=== PATIENT | female | born 1990 | race Caucasian/White ===

== ENCOUNTER 2016-11-21 00:23 | Outpatient (CLI) | payer MEDICAID ==
[2016-11-21 00:54] LABS: AMORPHOUS SEDIMENT,URINE TRACE /HPF; APPEARANCE,URINE SLIGHTLY-CLOUDY; BILIRUBIN,URINE NEGATIVE (NEGATIVE); GLUCOSE, URINE NEGATIVE (NEGATIVE); KETONES,URINE NEGATIVE (NEGATIVE); LEUKOCYTE ESTERASE,URINE SMALL (NEGATIVE); NITRITE,URINE NEGATIVE (NEGATIVE); PROTEIN,URINE NEGATIVE (NEGATIVE); URINE SPECIFIC GRAVITY 1.001; UROBILINOGEN,URINE NEGATIVE mg/dL (<2.0)
--- NOTE | 2016-11-21 01:38 | Non Stress Test Report ---
Non Stress Test Datetime Report Generated by CPN: 11/21/2016 01:38 DEMOGRAPHIC Test Number: 1 EGA NST: 36.2 INDICATION Indication for Study: Other Indication for Study (NST) Other: labor check MONITORING Monitor Explained: Monitor Explained; Test Explained; Patient Verbalized Understanding Time on Monitor: 11/21/2016 00:35 Time off Monitor: 11/21/2016 01:32 NST Duration: 57 NST INTERVENTIONS NST Interventions: PO Hydration Physician Notified NST: Dr Tonny BABY A: [id number] BABY A Movement : Present Contraction Frequency : none FHR Baseline : 140 Accelerations : 15X15 Decelerations : None Variability : Moderate 6-25bpm NST Review: Meets Criteria for Reactive NST NST Review and Verified By : Carmenza Hunter RN NST Results: Reactive NST REPORT Report Trigger: Send Report
[2016-11-21 03:34] LABS: URINE BARBITURATES SCREEN NEGATIVE; URINE METHADONE SCREEN NEGATIVE; URINE PHENCYCLIDINE SCREEN NEGATIVE
--- NOTE | 2016-11-21 04:47 | L&D General Admission ---
General Admit Datetime Report Generated by CPN: 11/21/2016 04:45 INFORMATION Para: 0 (11/21/2016 01:33:Deisy Arriola) Baby, Number in Womb: 1 (11/21/2016 01:33:Deisy Arriola) CARE Height (in): 64 (11/21/2016 00:35:QS system process)
--- NOTE | 2016-11-21 04:47 | L&D Discharge Summary ---
OB Discharge Summary Datetime Report Generated by CPN: 11/21/2016 04:45 DISCHARGE DIAGNOSIS Diagnosis/Symptoms: Vaginal Bleeding Diagnoses/Symptoms Other: positive movement Gestation: 36.1 Number of Babies in Womb: 1 Parity: 0 DIET/ACTIVITY/RESTRICTIONS Diet: Regular Diet Restrictions: Continue diet pt is currently on. Activity: Normal Activity Activity Restrictions: No Sexual Activity; Nothing in Vagina - [place], Tampons, [place] TEACHING/INSTRUCTIONS/REFERRALS Instructions Given To: patient Instructions Understood: Patient Verbalized Understanding; Support Person Verbalized Understanding Referrals: None Educational Materials- Other: kick counts DISCHARGE INFORMATION Discharged AMA: No Discharge Date/Time: 11/21/2016 01:34 Discharged To: Home Discharge Provider Name: Dr Lancaster Accompanied By: mom Discharge Method: Ambulatory Condition: Stable FOLLOW UP INFORMATION Follow Up With: [facility] Follow Up On: 1-2 Days Follow Up Phone Number: [facility] - Comments: Pt discharged for False Labor. Dr Hernandez on unit and assessed patient. Pt denies complaints, denies any medications for pain at discharge, agrees with plan of care, no distress noted. Understands s/s to report, when to return to hospital for evaluation, to keep scheduled appointments. GENERAL INSTR-CALL PROVIDER IF: Contractions: Contractions or cramps become more frequent than 8 in one hour or 4 in 20 minutes; Regular painful contractions every 5 minutes or less for one hour. Time your contractions from the beginning of one to the beginning of the next Pressure: Pressure in your vagina or lower abdomen that may feel like the baby is pushing down Period Like Cramps: Period-like cramps or low dull backache that may come and go Cramps/Diarrhea: Abdominal cramps that may be accompanied by diarrhea Gush of Fluid/Blood: Gush of fluid or blood from your vagina (it is normal to have spotting after vaginal exam or intercourse) Vaginal Discharge: Change in the type or amount of vaginal discharge Decreased Movement: Your baby is not moving as much as usual- 4 movements in 1 hour after drinking and resting on side Temperature: Temperature greater than 100.0(F) orally
--- NOTE | 2016-11-21 04:47 | L&D Current Admission ---
Current Admit Datetime Report Generated by CPN: 11/21/2016 04:45 ADMISSION INFORMATION Chief Complaint: Vaginal Bleeding (11/21/2016 00:41:Deisy Arriola)
--- NOTE | 2016-11-21 04:47 | L&D Flow Sheet ---
LD Flowsheet Datetime Report Generated by CPN: 11/21/2016 04:45 Datetime: 11/21/2016 01:37 Patient Care Comments: patient ambulated off the unit in stable condition (Deisy Arriola) Datetime: 11/21/2016 01:34 Teaching Comments: Discussed dicharge instructions with the patient, handout of kick counts given. The patient verbalized understanding of these instructions no further questions at this time. (Deisy Arriola) Datetime: 11/21/2016 01:29 Comments: external monitors removed for discharge (Deisy Arriola) Datetime: 11/21/2016 01:26 Communication Provider Notified (Name): Dr Lancaster notified of the patient 36.2 presented with spotting. No bleeding noted during visit. The patient denies any pain and denies any contractions. The patient can feel movement. Orders recieved to discharge the patient home. (Deisy Arriola) Datetime: 11/21/2016 01:22 Respirations: 18 (Deisy Arriola) Uterine Activity Monitor Mode: External; Palpation (Deisy Arriola) Frequency (min): irritability (Deisy Arriola) Resting Tone (Palpate): Relaxed (Deisy Arriola) Assessment A Monitor Mode: External US (Deisy Arriola) Monitor Interventions for FHR: Ultrasound Adjusted (Deisy Arriola) FHR Baseline Rate : 140 (Deisy Arriola) Variability: Moderate 6-25 bpm (Deisy Arriola) Accelerations: 15X15 (Deisy Arriola) Decelerations: None (Deisy Arriola) Patient Care Patient Position/Activity: High Fowlers (Deisy Arriola) LaborFlag: Antepartum (QS system process) Datetime: 11/21/2016 01:10 Vital Signs NBP Sys/Becky/Mean (mmHg): 119 (QS system process) : 71 (QS system process) : 88 (QS system process) Pulse: 96 (QS system process) LaborFlag: Antepartum (QS system process) Datetime: 11/21/2016 00:48 I/O Interventions: Clear Liquids Given (Deisy Arriola) Datetime: 11/21/2016 00:41 Pain Pain Scale: 0 (Deisy Arriola) Pain Presence: None/Denies (Deisy Arriola) Vaginal Exam Vaginal Bleeding: Scant (Deisy Arriola) Maternal Assessment Level of Consciousness: Fully Conscious (Deisy Arriola) DTR's/Clonus: DTRs 2+; No Clonus (Deisy Arriola) Headache: Denies (Deisy Arriola) Breath Sounds, Left: Clear and Equal (Deisy Arriola) Breath Sounds, Right: Clear and Equal (Deisy Arriola) Nausea/Vomiting: Denies (Deisy Arriola) RUQ Epigastric Pain: Denies (Deisy Arriola) Patient Care Patient Position/Activity: Left Tilt; High Fowlers (Deisy Arriola) Teaching Instructional Method: Verbal (Deisy Arriola) Plan of Care: Plan of Care Discussed (Deisy Arriola) Unit Routine: [place] to Room; Call [place]; Bed (Deisy Arriola) LaborFlag: Antepartum (QS system process) Datetime: 11/21/2016 00:40 Vital Signs NBP Sys/Becky/Mean (mmHg): 127 (QS system process) : 76 (QS system process) : 95 (QS system process) Pulse: 98 (QS system process) LaborFlag: Antepartum (QS system process) Datetime: 11/21/2016 00:30 Patient Care Comments: patient to the unit for labor check (Deisy Arriola)
--- NOTE | 2016-11-21 04:47 | Antepartum Discharge Summary ---
Antepartum DC Datetime Report Generated by CPN: 11/21/2016 04:45 TEACHING/INSTRUCTIONS/REFERRALS Instructions Given To: patient (11/21/2016 01:33:Deisy Arriola) Instructions Understood: Patient Verbalized Understanding; Support Person Verbalized Understanding (11/21/2016 01:33:Deisy Arriola) Referrals: None (11/21/2016 01:33:Deisy Arriola) Educational Materials- Other: kick counts (11/21/2016 01:33:Deisy Arriola) DISCHARGE INFORMATION Discharge Date/Time: 11/21/2016 01:34 (11/21/2016 01:33:Deisy Arroila) Discharged To: Home (11/21/2016 01:33:Deisy Arriola) Discharge Provider Name: Dr Lancaster (11/21/2016 01:33:Deisy Arriola) Accompanied By: mom (11/21/2016 01:33:Deisy Arriola) Discharge Method: Ambulatory (11/21/2016 01:33:Deisy Arriola) Condition: Stable (11/21/2016 01:33:Deisy Arriola) FOLLOW UP INFORMATION Follow Up With: [facility] (11/21/2016 01:33:Deisy Arriola) Follow Up On: 1-2 Days (11/21/2016 01:33:Deisy Arriola) Follow Up Phone Number: [facility] - (11/21/2016 01:33:Deisy Arriola)
--- NOTE | 2016-11-21 04:47 | L&D Admission Assessment ---
LD ADM ASMT Datetime Report Generated by CPN: 11/21/2016 04:45 PATIENT ASSESSMENT Assessment Type: Triage (11/21/2016 00:41:Deisy Arriola) WEIGHT Weight (lb): 143 (11/21/2016 00:35:QS system process) Weight (kg): 65.0 (11/21/2016 00:35:QS system process) BMI: 24.5 (11/21/2016 00:35:QS system process) PAIN Pain Scale: 0 (11/21/2016 00:41:Deisy Arriola) Pain Presence: None/Denies (11/21/2016 00:41:Deisy Arriola) CONTRACTIONS Frequency (min): irritability (11/21/2016 01:22:Deisy Arriola) Resting Tone Happy: Relaxed (11/21/2016 01:22:Deisy Arriola) NEURO Level of Consciousness: Fully Conscious (11/21/2016 00:41:Deisy Arriola) DTR's/Clonus: DTRs 2+; No Clonus (11/21/2016 00:41:Deisy Arriola) Headache: Denies (11/21/2016 00:41:Deisy Arriola) Dizziness: No (11/21/2016 00:41:Deisy Arriola) Blurred Vision: No (11/21/2016 00:41:Deisy Arriola) Extremity Numbness/Tingling : None (11/21/2016 00:41:Deisy Arriola) Extremity Movement: Full Range of Motion (11/21/2016 00:41:Deisy Arriola) CARDIOVASCULAR Heart Rhythm: Regular (11/21/2016 00:41:Deisy Arriola) Nailbeds: [place] (11/21/2016 00:41:Deisy Arriola) Capillary Refill: Less than 3 Seconds (11/21/2016 00:41:Deisy Arriola) Lower Extremities Edema: None (11/21/2016 00:41:Deisy Arriola) Lower Extremities Edema Degree: None (11/21/2016 00:41:Deisy Arriola) Upper Extremities Edema: None (11/21/2016 00:41:Deisy Arriola) Upper Extremities Edema Degree: None (11/21/2016 00:41:Deisy Arriola) Facial Edema: None (11/21/2016 00:41:Deisy Arriola) DVT RISK ASSESSMENT DVT Risk Age: Age less than 41 years (11/21/2016 00:41:Deisy Arriola) DVT Risk BMI: BMI<31 (11/21/2016 00:41:Deisy Arriola) DVT Risk Surgery: None Applicable (11/21/2016 00:41:Deisy Arriola) DVT Risk Other: Women Only- or (<1 month) (11/21/2016 00:41:Deisy Arriola) DVT Risk Total: 1 (11/21/2016 00:41:QS system process) DVT Risk Text: Low Risk (<10%) No specific measures, early ambulation (11/21/2016 00:41:QS system process) RESPIRATORY Respiratory Effort: Unlabored (11/21/2016 00:41:Deisy Arriola) Breath Sounds, Left: Clear and Equal (11/21/2016 00:41:Deisy Arriola) Breath Sounds, Right: Clear and Equal (11/21/2016 00:41:Deisy Arriola) Cough Productivity: None (11/21/2016 00:41:Deisy Arriola) GASTROINTESTINAL Nausea/Vomiting: Denies (11/21/2016 00:41:Deisy Arriola) Bowel Sounds: Normoactive (11/21/2016 00:41:Deisy Arriola) RUQ Epigastric Pain: Denies (11/21/2016 00:41:Deisy Arriola) Bowel Patterns: Soft, Formed Stool (11/21/2016 00:41:Deisy Arriola) Hemorrhoids: None (11/21/2016 00:41:Deisy Arriola) Diet Type: Regular diet (11/21/2016 00:41:Deisy Arriola) Last Meal: 11/20/2017 23:00 (11/21/2016 00:41:Deisy Arriola) GENITOURINARY Bladder: Nondistended (11/21/2016 00:41:Deisy Arriola) Frequency of Urination: No (11/21/2016 00:41:Deisy Arriola) Urination Burning: No (11/21/2016 00:41:Deisy Arriola) CVA Tenderness: No (11/21/2016 00:41:Deisy Arriola) Vaginal Bleeding: Scant (11/21/2016 00:41:Deisy Arriola) Vaginal Discharge Amount: Small (11/21/2016 00:41:Deisy Arriola) Vaginal Discharge Color: White (11/21/2016 00:41:Deisy Arriola) Vaginal Discharge Odor: Non-Odorous (11/21/2016 00:41:Deisy Arriola) Vaginal Discharge Character: Thin (11/21/2016 00:41:Deisy Arriola) INTEGUMENTARY Skin Color: Normal for Race (11/21/2016 00:41:Deisy Arriola) Skin Temperature: Warm (11/21/2016 00:41:Deisy Arriola) Skin Moisture: Dry (11/21/2016 00:41:Deisy Arriola) Surgical Scars: none (11/21/2016 00:41:Deisy Arriola) Body Piercings/Tattoos: none (11/21/2016 00:41:Deisy Arriola) IGLESIA SKIN ASSESSMENT Iglesia Scale Sensory Perception: No Impairment- Responds to verbal commands. Has no sensory deficit which would limit ability to feel or voice pain or discomfort (11/21/2016 00:41:Deisy Arriola) Iglesia Scale Moisture: Rarely Moist- Skin is usually dry. Linen only requires changing at routine intervals (11/21/2016 00:41:Deisy Arriola) Iglesia Scale Activity: Walks Frequently- Walks outside the room at least twice a day and inside room at least every 2 hours during the day. (11/21/2016 00:41:Deisy Arriola) Iglesia Scale Mobility: No Limitations- Makes major and frequent changes in position without assistance (11/21/2016 00:41:Deisy Arriola) Iglesia Scale Nutrition: Excellent- Eats most of every meal. Never refuses a meal. Usually eats a total of 4 or more servings of meat and dairy products. Occasionally eats between meals. Does not require supplementation (11/21/2016 00:41:Deisy Arriola) Iglesia Scale Friction and Shear: No Apparent Problem- Moves in bed and in chair independently and has sufficient muscle strength to lift up completely during move. Maintains good position in bed or chair at all times (11/21/2016 00:41:Deisy Arriola) Iglesia Scale Total: 23 (11/21/2016 00:41:QS system process) Iglesia Scale Risk: No Risk of Pressure Ulcer Noted at this Time (11/21/2016 00:41:QS system process) SUPPORT Family Support: Family supportive (11/21/2016 00:41:Deisy Arriola) Emotional State: Calm/Relaxed (11/21/2016 00:41:Deisy Arriola) SAFETY Call Vines Within Reach: Yes (11/21/2016 00:41:Deisy Arriola) Side Rails Up: Yes (11/21/2016 00:41:Deisy Arriola) Bed Wheels Locked: Yes (11/21/2016 00:41:Deisy Arriola) Arm Bands Present: Yes (11/21/2016 00:41:Deisy Arriola) Isolation: [place] (11/21/2016 00:41:Deisy Arriola) FALL SCREEN Fall Risk History of Falling: (0) No (11/21/2016 00:41:Deisy Flako) Fall Risk Secondary Diagnosis: (0) No (11/21/2016 00:41:Deisyrosa m Arriola) Fall Risk Ambulatory Aid: (0) None/Bedrest/Wheelchair/Nurse Assist (11/21/2016 00:41:Deisy Flako) Fall Risk IV Therapy: (0) No (11/21/2016 00:41:Deisyrosa m Arriola) Fall Risk Gait: (0) Normal/Bedrest/Immobile (11/21/2016 00:41:Deisy Arriola) Fall Risk Mental Status: (0) Oriented to Own Ability (11/21/2016 00:41:Deisy Flako) Fall Risk Score: 0 (11/21/2016 00:41:QS system process) Fall Risk Score Definition: No Risk: No action required (11/21/2016 00:41:QS system process) RECENT TRAVEL/INFECTIOUS DISEASE Recent Exp Communicable Disease: No (11/21/2016 00:41:Deisy Arriola) Cough or Fever: No (11/21/2016 00:41:Deisy Arriola) Foreign Travel Past 10 Days: No (11/21/2016 00:41:Deisy Arriola) Open Wounds or Sores: No (11/21/2016 00:41:Deisy Arriola) Prior Antibiotic Resistance Tx: No (11/21/2016 00:41:Deisy Arriola) Cultures Obtained: Not Applicable (11/21/2016 00:41:Deisy Arriola) Isolation Initiated: No (11/21/2016 00:41:Deisy Arriola) BABY A FHR Baseline Rate (bpm) Baby A: 140 (11/21/2016 01:22:Deisy Arriola) Variability Baby A: Moderate 6-25 bpm (11/21/2016 01:22:Deisyrosa m Arriola) Accelerations Baby A: 15X15 (11/21/2016 01:22:Deisy Arriola) Decelerations Baby A: None (11/21/2016 01:22:Deisy Arriola)
== END 2016-11-21 01:37 | disposition home or self-care (01) ==
LOC: LC 00:23
PROVIDERS: ATTEND Obstetrics & Gynecology
PROC: 4A1HXCZ Monitoring of Products of Conception, Cardiac Rate, External Approach (ICD-10-PCS; principal; 2016-11-21)
DX: O46.93 Antepartum hemorrhage, unspecified, third trimester (principal); O47.03 False labor before 37 completed weeks of gestation, third trimester; Z3A.36 36 weeks gestation of pregnancy
CPT/HCPCS: 59025; 81001; G0479; 80307

== ENCOUNTER 2016-12-13 05:57 | Inpatient (IN) | payer MEDICAID ==
[2016-12-13 06:51] LABS: APPEARANCE,URINE SLIGHTLY-CLOUDY; BILIRUBIN,URINE NEGATIVE (NEGATIVE); GLUCOSE, URINE NEGATIVE (NEGATIVE); KETONES,URINE NEGATIVE (NEGATIVE); LEUKOCYTE ESTERASE,URINE MODERATE (NEGATIVE); NITRITE,URINE NEGATIVE (NEGATIVE); PROTEIN,URINE NEGATIVE (NEGATIVE); URINE SPECIFIC GRAVITY 1.004; UROBILINOGEN,URINE NEGATIVE mg/dL (<2.0)
[2016-12-13 06:55] LABS: AMNISURE (ROM) POSITIVE (NEGATIVE)
[2016-12-13 07:13] LABS: URINE BARBITURATES SCREEN NEGATIVE; URINE METHADONE SCREEN NEGATIVE; URINE PHENCYCLIDINE SCREEN NEGATIVE
[2016-12-13 07:21] LABS: ABSOLUTE EOSINOPHILS # (AUTO) 0.1 10^3/uL (0.0-0.6); ABSOLUTE LYMPHOCYTES (AUTO) 1.1 10^3/uL (0.5-4.7); ABSOLUTE MONOCYTES (AUTO) 0.6 10^3/uL (0.1-1.4); ABSOLUTE NEUT (AUTO) 9.6 10^3/uL (1.7-8.2); BASOPHILS % (AUTO) 0.3 % (0-2); EOSINOPHILS % (AUTO) 0.5 % (0-6); HEMATOCRIT 34.5 % (36.0-47.0); HEMOGLOBIN 11.5 g/dL (12.0-15.5); LYMPHOCYTES % (AUTO) 9.9 % (13-45); MEAN CORPUSCULAR HEMOGLOBIN 27.7 pg (27.0-33.4); MEAN CORPUSCULAR HGB CONC 33.3 g/dL (32.0-36.0); MEAN CORPUSCULAR VOLUME 83 fl (80-97); MONOCYTES % (AUTO) 5.2 % (3-13); RED BLOOD COUNT 4.14 10^6/uL (3.72-5.28); RED CELL DISTRIBUTION WIDTH 14.7 % (11.5-14.0); SEGMENTED NEUTROPHILS % (AUTO) 84.1 % (42-78); WHITE BLOOD COUNT 11.4 10^3/uL (4.0-10.5)
--- NOTE | 2016-12-13 08:00 | L&D Flow Sheet ---
LD Flowsheet Datetime Report Generated by CPN: 12/13/2016 08:00 Datetime: 12/13/2016 07:50 NBP Sys/Becky/Mean (mmHg): 128 (QS system process) : 66 (QS system process) : 87 (QS system process) Pulse: 116 (QS system process) LaborFlag: Antepartum (QS system process) Datetime: 12/13/2016 07:37 Patient Care IV/Blood Work: IV Started; IV Bolus Started; IV Infusing per Order; New IV Bag Hung; IV Bag Number @ 1 (Ekta Norfolk, RN) Datetime: 12/13/2016 07:13 Communication Communication: Report Given to @ A. Babine RN, care relinquished (Rucsandra Elsa, RN) Datetime: 12/13/2016 07:08 Patient Care Comments: Lab at bedside for admission lab draw. (Nancy Melloahan, RN) Datetime: 12/13/2016 07:04 NBP Sys/Becky/Mean (mmHg): 135 (QS system process) : 88 (QS system process) : 105 (QS system process) Pulse: 130 (QS system process) LaborFlag: Antepartum (QS system process) Datetime: 12/13/2016 07:00 Uterine Activity Monitor Mode: External; Palpation (Rucsandra Elsa, RN) Frequency (min): 2-5.5 (Rucsandra Elsa, RN) Quality: Mild/Moderate (Rucsandra Elsa, RN) Duration (sec): 50-100 (Rucsandra Elsa, RN) Resting Tone (Palpate): Relaxed (Rucsandra Elsa, RN) Assessment A Monitor Mode: External US (Rucsandra Elsa, RN) FHR Baseline Rate : 125 (Rucsandra Elsa, RN) Variability: Moderate 6-25 bpm (Rucsandra Elsa, RN) Accelerations: 10X10 (Rucsandra Elsa, RN) Decelerations: None (Rucsandra Elsa, RN) Datetime: 12/13/2016 06:58 Teaching Instructional Method: Verbal; Patient Instructed; Family/Support Person Instructed; Verbalized Understanding (Nancy Hunter RN) Plan of Care: Plan of Care Discussed; Vaginal Delivery (Nancy Hunter RN) Unit Routine: IV Pumps (Nancy Hunter RN) Labor/Induction: Labor Stages (Nancy Hunter RN) Teaching Comments: pt and family informed of SROM, POC discussed with pt and family. All agree and V/U. (Nancy Hunter RN) Datetime: 12/13/2016 06:57 Maternal Comments: pt back to bed without incident. (Nancy Hunter RN) Datetime: 12/13/2016 06:49 NBP Sys/Becky/Mean (mmHg): 127 (QS system process) : 81 (QS system process) : 98 (QS system process) Pulse: 120 (QS system process) I/O Interventions: Up to BR (Rucsandra Elsa, RN) LaborFlag: Antepartum (QS system process) Datetime: 12/13/2016 06:40 Patient Position/Activity: Right Lateral (Rucsandra Elsa, RN) Datetime: 12/13/2016 06:37 Vaginal Exam Dilatation (cm): 3.0 (Nancy Hunter, RN) Effacement (%): 80 (Nancy Hunter, RN) Station: 0 (Nancy Hunter, RN) Exam by: Carmenza Hunter RN (Nancy Hunter, RN) Datetime: 12/13/2016 06:35 Maternal Comments: amnisure collected (Nancy Hunter, RN) Datetime: 12/13/2016 06:34 NBP Sys/Becky/Mean (mmHg): 129 (QS system process) : 89 (QS system process) : 103 (QS system process) Pulse: 113 (QS system process) LaborFlag: Antepartum (QS system process) Datetime: 12/13/2016 06:30 Uterine Activity Monitor Mode: External; Palpation (Rucsandra Elsa, RN) Frequency (min): 2-4 (Rucsandra Elsa, RN) Quality: Mild/Moderate (Rucsandra Elsa, RN) Duration (sec): 50-80 (Rucsandra Elsa, RN) Resting Tone (Palpate): Relaxed (Rucsandra Elsa, RN) Contraction Comments: pt talking through ctx (Rucsandra Elsa, RN) Assessment A Monitor Mode: External US (Rucsandra Hunter, RN) FHR Baseline Rate : 125 (Rucsandra Elsa, RN) Variability: Moderate 6-25 bpm (Rucsandra Elsa, RN) Accelerations: 15X15 (Rucsandra Elsa, RN) Decelerations: None (Rucsandra Elsa, RN) Datetime: 12/13/2016 06:23 Temperature (F): 98.2 (Augustaandra Hunter, RN) Temperature (C): 36.8 (QS system process) LaborFlag: Antepartum (QS system process) Datetime: 12/13/2016 06:19 NBP Sys/Becky/Mean (mmHg): 133 (QS system process) : 82 (QS system process) : 100 (QS system process) Pulse: 102 (QS system process) LaborFlag: Antepartum (QS system process) Datetime: 12/13/2016 06:17 Vital Signs Stage of : Antepartum (Nancy Hunter RN) NBP Sys/Becky/Mean (mmHg): 137 (QS system process) : 78 (QS system process) : 102 (QS system process) Pulse: 90 (QS system process) Pain Pain Scale: 1 (Nancy Hunter, FLORA) Pain Presence: Constant (Nancy Hunter, FLORA) Pain Type: Ache (Nancy Hunter, FLORA) Pain Location: Back (Nancy Hunter, RN) Pain Goal: 2 (Nancy Hunter, RN) Vaginal Bleeding: None (Nancy Hunter RN) Maternal Assessment Level of Consciousness: Fully Conscious (Nancy Hunter RN) DTR's/Clonus: DTRs 2+; No Clonus (Nancy Hunter RN) Headache: Denies (Nancy Hunter RN) Breath Sounds, Left: Clear and Equal (Nancy Hunter RN) Breath Sounds, Right: Clear and Equal (Nancy Hunter RN) Nausea/Vomiting: Present (Annotations: nausea present but pt reports comes and goes. Able to hold down liquids and tolerate eating. ) (Nancy Hunter RN) Patient Position/Activity: Left Tilt (Nancy Hunter RN) Teaching Instructional Method: Verbal; Patient Instructed; Family/Support Person Instructed; Verbalized Understanding (Nancy Hunter RN) Plan of Care: Plan of Care Discussed (Nancy Hunter RN) Unit Routine: [place] to Room; Call [place]; Bed; Visiting Policy; Waiting Areas; Phone/Cell Phone Use; Unit Personnel; Handwashing; Monitoring; Bathroom Privileges (Nancy Hunter RN) LaborFlag: Antepartum (QS system process)
[2016-12-13] MEDS ORDERED: OXYTOCIN/NORMAL SALINE 20 UNIT/1,000 ML RTUINJ ONE (08:45)
[2016-12-13] MEDS ORDERED: BUPIVACAINE HCL 0.25 % INJ/PF (2.5 MG/1 ML) 30 ML VIAL ONE (10:04)
[2016-12-13] MEDS ORDERED: EPHEDRINE SULFATE INJ 50 MG/1 ML AMPULE ONE (10:04)
[2016-12-13] MEDS ORDERED: FENTANYL/BUPIVACAINE/NS/PF 200 MCG/100 ML RTUINJ EPI ONE (10:04)
--- NOTE | 2016-12-13 11:46 | L&D Progress Notes ---
PROGRESS NOTES Datetime Report Generated by CPN: 12/13/2016 11:46 PROGRESS NOTE Impression: Normal Progression of Labor Procedures: Artificial ROM Procedures- Other: Forebag Plan: Continue Present Management Comment: SVE with forebag felt-AROM w clear fluid. Cervix on maternal right. Anticipate . VAGINAL EXAM Dilatation: 8 Effacement: 100 Station: -1 MEMBRANES Membranes: Ruptured Membranes: Ruptured Amniotic Fluid Color: Clear Amniotic Fluid Color: Clear FETUS A R - Baseline: 145 Monitoring: External US : 39.3 Presentation: Vertex SIGNATURE SIGNATURE: [id number] SIGNATURE: [id number] Assignment: Bobby Lozano MD Signature: with User ID: [email or web address] : with User ID: [email or web address] : I personally evaluated and examined the patient in conjunction with the MLP and agree with the assessment, treatment plan and disposition. : I personally evaluated and examined the patient in conjunction with the MLP and agree with the assessment, treatment plan and disposition.
--- NOTE | 2016-12-13 12:00 | L&D Flow Sheet ---
LD Flowsheet Datetime Report Generated by CPN: 12/13/2016 12:00 Datetime: 12/13/2016 11:51 NBP Sys/Becky/Mean (mmHg): 109 (QS system process) : 53 (QS system process) : 75 (QS system process) Pulse: 112 (QS system process) Patient Position/Activity: Right Lateral; Peanut Ball (Jacinta Carbone, RN) LaborFlag: Antepartum (QS system process) Datetime: 12/13/2016 11:44 Dilatation (cm): 8.5 (Jacinta Carbone, FLORA) Effacement (%): 90 (Jacinta Carbone, FLORA) Station: -1 (Jacinta Carbone, FLORA) Exam by: Tres Escalera CNM (Jacinta Carbone RN) Membrane Comments: fore bag ruptured (Jacinta Carbone, FLORA) Datetime: 12/13/2016 11:36 NBP Sys/Becky/Mean (mmHg): 121 (QS system process) : 57 (QS system process) : 79 (QS system process) Pulse: 101 (QS system process) LaborFlag: Antepartum (QS system process) Datetime: 12/13/2016 11:22 NBP Sys/Becky/Mean (mmHg): 120 (QS system process) : 58 (QS system process) : 83 (QS system process) Pulse: 106 (QS system process) LaborFlag: Antepartum (QS system process) Datetime: 12/13/2016 11:06 NBP Sys/Becky/Mean (mmHg): 122 (QS system process) : 60 (QS system process) : 86 (QS system process) Pulse: 113 (QS system process) LaborFlag: Antepartum (QS system process) Datetime: 12/13/2016 10:53 Pain Scale: 1 (Jacinta Carbone, RN) Pain Presence: Intermittent (Jacinta Raf, RN) Pain Type: Contraction (Jacinta Raf, RN) Pain Location: Perineum (Jacinta Raf, RN) Pain Relief Measures: Comfort Measures (Jacinta Raf, RN) LaborFlag: Antepartum (QS system process) Datetime: 12/13/2016 10:51 NBP Sys/Becky/Mean (mmHg): 129 (QS system process) : 58 (QS system process) : 84 (QS system process) Pulse: 107 (QS system process) LaborFlag: Antepartum (QS system process) Datetime: 12/13/2016 10:50 NBP Sys/Becky/Mean (mmHg): 129 (QS system process) : 70 (QS system process) : 91 (QS system process) Pulse: 121 (QS system process) LaborFlag: Antepartum (QS system process) Datetime: 12/13/2016 10:49 NBP Sys/Becky/Mean (mmHg): 123 (QS system process) : 58 (QS system process) : 87 (QS system process) Pulse: 113 (QS system process) LaborFlag: Antepartum (QS system process) Datetime: 12/13/2016 10:48 NBP Sys/Becky/Mean (mmHg): 127 (QS system process) : 62 (QS system process) : 89 (QS system process) Pulse: 113 (QS system process) LaborFlag: Antepartum (QS system process) Datetime: 12/13/2016 10:47 NBP Sys/Becky/Mean (mmHg): 135 (QS system process) : 60 (QS system process) : 87 (QS system process) Pulse: 116 (QS system process) I/O Interventions: Recio Cath Inserted (Jacinta Carbone RN) Patient Care Comments: pt tolerated well (Jacinta Carbone RN) LaborFlag: Antepartum (QS system process) Datetime: 12/13/2016 10:46 NBP Sys/Becky/Mean (mmHg): 124 (QS system process) : 68 (QS system process) : 87 (QS system process) Pulse: 126 (QS system process) LaborFlag: Antepartum (QS system process) Datetime: 12/13/2016 10:45 NBP Sys/Becky/Mean (mmHg): 129 (QS system process) : 70 (QS system process) : 94 (QS system process) Pulse: 116 (QS system process) Dilatation (cm): 8.0 (Jacinta Carbone RN) Effacement (%): 90 (Jacinta Carbone, RN) Station: 0 (Jacinta Carbone RN) Exam by: A .Raf RN (Jacinta Carbone RN) LaborFlag: Antepartum (QS system process) Datetime: 12/13/2016 10:44 NBP Sys/Becky/Mean (mmHg): 130 (QS system process) : 66 (QS system process) : 91 (QS system process) Pulse: 105 (QS system process) LaborFlag: Antepartum (QS system process) Datetime: 12/13/2016 10:43 NBP Sys/Becky/Mean (mmHg): 119 (QS system process) : 56 (QS system process) : 79 (QS system process) Pulse: 110 (QS system process) LaborFlag: Antepartum (QS system process) Datetime: 12/13/2016 10:42 NBP Sys/Becky/Mean (mmHg): 119 (QS system process) : 61 (QS system process) : 83 (QS system process) Pulse: 103 (QS system process) Patient Position/Activity: Left Tilt (Jacinta Carbone RN) Patient Position/Activity: Right Tilt (Jacinta Carbone RN) Anesthesia Level Check: T10- Umbilicus (Jacinta Carbone RN) LaborFlag: Antepartum (QS system process) Datetime: 12/13/2016 10:41 NBP Sys/Becky/Mean (mmHg): 115 (QS system process) : 73 (QS system process) : 90 (QS system process) Pulse: 133 (QS system process) LaborFlag: Antepartum (QS system process) Datetime: 12/13/2016 10:40 NBP Sys/Becky/Mean (mmHg): 124 (QS system process) : 79 (QS system process) : 96 (QS system process) Pulse: 122 (QS system process) LaborFlag: Antepartum (QS system process) Datetime: 12/13/2016 10:39 NBP Sys/Becky/Mean (mmHg): 144 (QS system process) : 79 (QS system process) : 106 (QS system process) Pulse: 112 (QS system process) Pulse: 114 (QS system process) SpO2 (%): 100 (QS system process) LaborFlag: Antepartum (QS system process) Datetime: 12/13/2016 10:38 NBP Sys/Becky/Mean (mmHg): 143 (QS system process) : 73 (QS system process) : 99 (QS system process) Pulse: 125 (QS system process) LaborFlag: Antepartum (QS system process) Datetime: 12/13/2016 10:37 Epidural Procedure: Test Dose (Jacinta Raf, RN) Datetime: 12/13/2016 10:35 NBP Sys/Becky/Mean (mmHg): 131 (QS system process) : 67 (QS system process) : 91 (QS system process) Pulse: 136 (QS system process) LaborFlag: Antepartum (QS system process) Datetime: 12/13/2016 10:31 Communication Comments: DrOly Carrasquillo at bedside (Jacinta Raf, RN) Datetime: 12/13/2016 10:27 Pulse: 126 (QS system process) SpO2 (%): 94 (QS system process) LaborFlag: Antepartum (QS system process) Datetime: 12/13/2016 10:26 Pulse: 113 (QS system process) SpO2 (%): 100 (QS system process) LaborFlag: Antepartum (QS system process) Datetime: 12/13/2016 10:21 NBP Sys/Becky/Mean (mmHg): 125 (QS system process) : 66 (QS system process) : 90 (QS system process) Pulse: 126 (QS system process) Pulse: 109 (QS system process) SpO2 (%): 98 (QS system process) LaborFlag: Antepartum (QS system process) Datetime: 12/13/2016 10:18 Medication Comments: Pitocin d/c'd until after epidural per Tres Escalera CNM (Jacinta Carbone RN) Datetime: 12/13/2016 10:16 Pulse: 104 (QS system process) SpO2 (%): 100 (QS system process) LaborFlag: Antepartum (QS system process) Datetime: 12/13/2016 10:15 Anesthesia Comments: pt sitting up for epidural placement (Jacinta Raf, RN) Datetime: 12/13/2016 10:05 NBP Sys/Becky/Mean (mmHg): 128 (QS system process) : 76 (QS system process) : 90 (QS system process) Pulse: 133 (QS system process) LaborFlag: Antepartum (QS system process) Datetime: 12/13/2016 09:53 Anesthesia Comments: new bag of LR hung (Jacinta Carbone RN) Datetime: 12/13/2016 09:34 NBP Sys/Becky/Mean (mmHg): 133 (QS system process) : 65 (QS system process) : 91 (QS system process) Pulse: 106 (QS system process) LaborFlag: Antepartum (QS system process) Datetime: 12/13/2016 09:32 Procedure Verify: Correct Patient Identity (Jacinta Carbone RN) Anesthesia Plans: Epidural (Jacinta Carbone RN) Epidural Positioning: Sitting (Jacinta Carbone RN) Anesthesia Comments: LR bolus stated (Jacinta Carbone RN) Communication Comments: Tres Escalera CNM on unit, order recieved to let pt have epidural (Jacinta Raf, RN) Datetime: 12/13/2016 09:30 Pain Scale: 5 (Jacinta Raf, RN) Pain Presence: Intermittent (Jacinta Raf, RN) Pain Type: Contraction (Jacinta Raf, RN) Pain Relief Measures: Comfort Measures (Jacinta Raf, RN) Pain Coping: Requesting Pain Medication or Epidural; Crying (Jacinta Raf, RN) Comfort Measures: Family Support (Jacinta Raf, RN) LaborFlag: Antepartum (QS system process) Datetime: 12/13/2016 09:23 Pitocin (milliunit): Pitocin Increased to (milliunits) @ 4 (Jacinta Raf, RN) Datetime: 12/13/2016 09:20 NBP Sys/Becky/Mean (mmHg): 124 (QS system process) : 70 (QS system process) : 92 (QS system process) Pulse: 114 (QS system process) LaborFlag: Antepartum (QS system process) Datetime: 12/13/2016 09:05 NBP Sys/Becky/Mean (mmHg): 136 (QS system process) : 61 (QS system process) : 89 (QS system process) Pulse: 116 (QS system process) LaborFlag: Antepartum (QS system process) Datetime: 12/13/2016 09:00 Monitor Mode: External (Jacinta Raf, RN) Frequency (min): 2-5 (Jacinta Raf, RN) Quality: Mild/Moderate (Jacinta Raf, RN) Duration (sec): 60-80 (Jacinta Raf, RN) Resting Tone (Palpate): Relaxed (Jacinta Raf, RN) Monitor Mode: External US (Jacinta Raf, RN) FHR Baseline Rate : 145 (Jacinta Raf, RN) Variability: Moderate 6-25 bpm (Jacinta Raf, RN) Accelerations: None (Jacinta Raf, RN) Decelerations: None (Jacinta Raf, RN) Pitocin (milliunit): Pitocin Started (milliunits) @ 2 (Jacinta Raf, RN) Datetime: 12/13/2016 08:58 Patient Position/Activity: Left Tilt (Jacinta Raf, RN) Datetime: 12/13/2016 08:53 I/O Interventions: Up to BR (Jacinta Raf, RN) Datetime: 12/13/2016 08:50 Communication Comments: Tres Escalera CNM on unit, order recieved to start pitocin (Jacinta Raf, RN) Datetime: 12/13/2016 08:49 NBP Sys/Becky/Mean (mmHg): 130 (QS system process) : 65 (QS system process) : 92 (QS system process) Pulse: 111 (QS system process) LaborFlag: Antepartum (QS system process) Datetime: 12/13/2016 08:45 Monitor Mode: External (Jacinta Raf, RN) Frequency (min): 1-3 (Jacinta Raf, RN) Quality: Mild/Moderate (Jacinta Raf, RN) Duration (sec): 60-90 (Jacinta Raf, RN) Resting Tone (Palpate): Relaxed (Jacinta Raf, RN) Monitor Mode: External US (Jacinta Raf, RN) FHR Baseline Rate : 145 (Jacinta Raf, RN) Variability: Moderate 6-25 bpm (Jacinta Raf, RN) Accelerations: 15X15 (Jacinta Raf, RN) Decelerations: None (Jacinta Raf, RN) Datetime: 12/13/2016 08:36 Patient Position/Activity: Left Lateral (Jacinta Raf, RN) Datetime: 12/13/2016 08:34 NBP Sys/Becky/Mean (mmHg): 129 (QS system process) : 64 (QS system process) : 87 (QS system process) Pulse: 134 (QS system process) LaborFlag: Antepartum (QS system process) Datetime: 12/13/2016 08:30 Monitor Mode: External (Jacinta Raf, RN) Frequency (min): 2-5 (Jacinta Raf, RN) Quality: Mild (Jacinta Raf, RN) Duration (sec): 60-90 (Jacinta Raf, RN) Resting Tone (Palpate): Relaxed (Jacinta Raf, RN) Monitor Mode: External US (Jacinta Raf, RN) FHR Baseline Rate : 140 (Jacinta Raf, RN) Variability: Moderate 6-25 bpm (Jacinta Raf, RN) Accelerations: None (Jacinta Raf, RN) Decelerations: None (Jacinta Raf, RN) Datetime: 12/13/2016 08:21 NBP Sys/Becky/Mean (mmHg): 126 (QS system process) : 65 (QS system process) : 86 (QS system process) Pulse: 116 (QS system process) LaborFlag: Antepartum (QS system process) Datetime: 12/13/2016 08:15 Monitor Mode: External (Jacinta Raf, RN) Frequency (min): occ (Jacinta Raf, RN) Quality: Mild/Moderate (Jacinta Raf, RN) Resting Tone (Palpate): Relaxed (Jacinta Raf, RN) Monitor Mode: External US (Jacinta Raf, RN) FHR Baseline Rate : 135 (Jacinta Raf, RN) Variability: Moderate 6-25 bpm (Jacinta Raf, RN) Accelerations: 15X15 (Jacinta Raf, RN) Decelerations: None (Jacinta Raf, RN) Datetime: 12/13/2016 08:14 Patient Position/Activity: Left Tilt (Jacinta Raf, RN) Datetime: 12/13/2016 08:06 I/O Interventions: Up to BR (Jacinta Raf, RN) Datetime: 12/13/2016 08:05 NBP Sys/Becky/Mean (mmHg): 121 (QS system process) : 66 (QS system process) : 86 (QS system process) Pulse: 116 (QS system process) LaborFlag: Antepartum (QS system process) Datetime: 12/13/2016 08:00 Monitor Mode: External (Jacinta Raf, RN) Frequency (min): irreg (Jacinta Raf, RN) Quality: Mild (Jacinta Raf, RN) Resting Tone (Palpate): Relaxed (Jacinta Raf, RN) Monitor Mode: External US (Jacinta Raf, RN) FHR Baseline Rate : 135 (Jacinta Raf, RN) Variability: Moderate 6-25 bpm (Jacinta Raf, RN) Accelerations: 15X15 (Jacinta Raf, RN) Decelerations: None (Jacinta Raf, RN)
[2016-12-13] MEDS ORDERED: MISOPROSTOL 0.2 MG TABLET ONE (13:24)
[2016-12-13] MEDS ORDERED: LIDOCAINE 1% INJ-PF (10 MG/ML) 30 ML SDV ONE (13:24)
--- NOTE | 2016-12-13 16:00 | L&D Flow Sheet ---
LD Flowsheet Datetime Report Generated by CPN: 12/13/2016 16:00 Datetime: 12/13/2016 15:56 Stage 2 Comments: POly Escalera CNM at bedside (Jacinta Raf, RN) Datetime: 12/13/2016 15:51 NBP Sys/Becky/Mean (mmHg): 109 (QS system process) : 56 (QS system process) : 78 (QS system process) Pulse: 129 (QS system process) LaborFlag: Antepartum (QS system process) Datetime: 12/13/2016 15:37 NBP Sys/Becky/Mean (mmHg): 135 (QS system process) : 81 (QS system process) : 92 (QS system process) Pulse: 166 (QS system process) LaborFlag: Antepartum (QS system process) Datetime: 12/13/2016 15:24 Stage 2 Comments: pushing left tilt (Jacinta Raf, RN) Datetime: 12/13/2016 15:06 NBP Sys/Becky/Mean (mmHg): 129 (QS system process) : 60 (QS system process) : 86 (QS system process) Pulse: 146 (QS system process) LaborFlag: Antepartum (QS system process) Datetime: 12/13/2016 15:04 Stage 2 Comments: pushing with squat bar (Jacinta Raf, RN) Datetime: 12/13/2016 14:52 NBP Sys/Becky/Mean (mmHg): 116 (QS system process) : 58 (QS system process) : 83 (QS system process) Pulse: 111 (QS system process) LaborFlag: Antepartum (QS system process) Datetime: 12/13/2016 14:41 Pitocin (milliunit): Pitocin Increased to (milliunits) @ 4 (Jacinta Raf, RN) Datetime: 12/13/2016 14:38 NBP Sys/Becky/Mean (mmHg): 117 (QS system process) : 56 (QS system process) : 80 (QS system process) Pulse: 104 (QS system process) LaborFlag: Antepartum (QS system process) Datetime: 12/13/2016 14:26 Pitocin (milliunit): Pitocin Started (milliunits) @ 2 (Jacinta Raf, RN) Datetime: 12/13/2016 14:24 Stage 2 Comments: pushing tug of war (Jacinta Raf, RN) Datetime: 12/13/2016 14:07 NBP Sys/Becky/Mean (mmHg): 130 (QS system process) : 58 (QS system process) : 84 (QS system process) Pulse: 108 (QS system process) LaborFlag: Antepartum (QS system process) Datetime: 12/13/2016 13:53 NBP Sys/Becky/Mean (mmHg): 119 (QS system process) : 56 (QS system process) : 80 (QS system process) Pulse: 114 (QS system process) LaborFlag: Antepartum (QS system process) Datetime: 12/13/2016 13:36 NBP Sys/Becky/Mean (mmHg): 125 (QS system process) : 67 (QS system process) : 88 (QS system process) Pulse: 116 (QS system process) LaborFlag: Antepartum (QS system process) Datetime: 12/13/2016 13:21 NBP Sys/Becky/Mean (mmHg): 125 (QS system process) : 60 (QS system process) : 83 (QS system process) Pulse: 110 (QS system process) LaborFlag: Antepartum (QS system process) Datetime: 12/13/2016 13:07 NBP Sys/Becky/Mean (mmHg): 114 (QS system process) : 56 (QS system process) : 81 (QS system process) Pulse: 120 (QS system process) LaborFlag: Antepartum (QS system process) Datetime: 12/13/2016 13:01 Dilatation (cm): 10.0 (Jacinta Carbone RN) Effacement (%): 100 (Jacinta Carbone RN) Station: 1 (Jacinta Carbone RN) Exam by: Shanna Carbone RN (Jacinta Carbone RN) Vaginal Exam Comments: Tres Escalera CNM informed of SVE, instructed to have pt labor down (Jacinta Carbone RN) Datetime: 12/13/2016 12:51 NBP Sys/Becky/Mean (mmHg): 111 (QS system process) : 59 (QS system process) : 78 (QS system process) Pulse: 120 (QS system process) LaborFlag: Antepartum (QS system process) Datetime: 12/13/2016 12:37 NBP Sys/Becky/Mean (mmHg): 117 (QS system process) : 64 (QS system process) : 85 (QS system process) Pulse: 115 (QS system process) LaborFlag: Antepartum (QS system process) Datetime: 12/13/2016 12:30 Monitor Mode: External; Palpation (Jacinta Raf, RN) Frequency (min): 1-3 (Jacinta Raf, RN) Quality: Moderate to Strong (Jacinta Raf, RN) Duration (sec): 50-80 (Jacinta Raf, RN) Resting Tone (Palpate): Relaxed (Jacinta Raf, RN) Monitor Mode: External US (Jacinta Raf, RN) FHR Baseline Rate : 140 (Jacinta Raf, RN) Variability: Moderate 6-25 bpm (Jacinta Raf, RN) Accelerations: None (Jacinta Raf, RN) Decelerations: None (Jacinta Raf, RN) Datetime: 12/13/2016 12:21 NBP Sys/Becky/Mean (mmHg): 116 (QS system process) : 55 (QS system process) : 79 (QS system process) Pulse: 113 (QS system process) LaborFlag: Antepartum (QS system process) Datetime: 12/13/2016 12:06 NBP Sys/Becky/Mean (mmHg): 125 (QS system process) : 65 (QS system process) : 85 (QS system process) Pulse: 109 (QS system process) LaborFlag: Antepartum (QS system process) Datetime: 12/13/2016 12:05 Patient Position/Activity: Tailors (Jacinta Raf, RN) Datetime: 12/13/2016 12:00 Monitor Mode: External (Jacinta Raf, RN) Frequency (min): 2-4 (Jacinta Raf, RN) Quality: Moderate to Strong (Jacinta Raf, RN) Duration (sec): 60-80 (Jacinta Raf, RN) Resting Tone (Palpate): Relaxed (Jacinta Raf, RN) Monitor Mode: External US (Jacinta Raf, RN) FHR Baseline Rate : 150 (Jacinta Raf, RN) Variability: Moderate 6-25 bpm (Jacinta Raf, RN) Accelerations: None (Jacinta Raf, RN) Decelerations: None (Jacinta Raf, RN)
[2016-12-13] MEDS ORDERED: GLYCERIN/WITCH HAZEL LEAF 1 EACH MED..PAD TP PRN (16:33)
[2016-12-13] MEDS ORDERED: MEASLES,MUMPS&RUBELLA VACC/PF 0.5 ML VIAL SUBCUT PRN (16:33)
[2016-12-13] MEDS ORDERED: BENZOCAINE/MENTHOL AEROSOL SPRAY 56 ML TOP PRN (16:33)
[2016-12-13] MEDS ORDERED: DIBUCAINE 1% OINTMENT 28 GM TP PRN (16:33)
[2016-12-13] MEDS ORDERED: ACETAMINOPHEN WITH CODEINE #3 TABLET PO PRN ×2 (16:33)
[2016-12-13] MEDS ORDERED: PROMETHAZINE HCL 25 MG SUPP.RECT PR PRN (16:33)
[2016-12-13] MEDS ORDERED: MAGNESIUM HYDROXIDE SUSP 30 ML UDCUP PO PRN (16:33)
[2016-12-13] MEDS ORDERED: PROMETHAZINE HCL INJ 25 MG/1 ML VIAL IV PRN (16:33)
[2016-12-13] MEDS ORDERED: OXYTOCIN/NORMAL SALINE 1,000 ML IV PRN (16:33)
[2016-12-13] MEDS ORDERED: ZOLPIDEM TARTRATE 5 MG TABLET PO PRN (16:33)
[2016-12-13] MEDS ORDERED: ACETAMINOPHEN 650 MG SUPP.RECT PR PRN (16:33)
[2016-12-13] MEDS ORDERED: DIPHENHYDRAMINE HCL 25 MG CAPSULE PO PRN (16:33)
[2016-12-13] MEDS ORDERED: PSEUDOEPHEDRINE HCL 30 MG TABLET PO PRN (16:33)
[2016-12-13] MEDS ORDERED: PROMETHAZINE HCL 25 MG TABLET PO PRN (16:33)
[2016-12-13] MEDS ORDERED: NA PHOS,M-B/NA PHOS,DI-BA (ADULT) 133 ML ENEMA PR PRN (16:33)
[2016-12-13] MEDS ORDERED: DIPH/PERTUSS(ACELL)/TETANUS VAC/PF 0.5 ML SYR (>=10YO) IM PRN (16:33)
--- NOTE | 2016-12-13 18:40 | Admission Physical ---
Datetime Report Generated by CPN: 12/13/2016 18:40 CURRENT ADMISSION Chief Complaint: Suspected Ruptured Membranes Indication for Induction: Not Applicable Admit Impression- Other: SROM at 0500 Admit Plan: Admit to Unit; Initiate Labor Protocol ALLERGIES Medication Allergies: Yes Medication Allergies: ibuprofen/MO/VOMITING (09/08/2016) Latex: No Latex Allergies Food Allergies: None Environmental Allergies: None OBSTETRICAL HISTORY EDC: 12/17/2016 00:00 : 1 Para: 0 Term: 0 : 0 SAB: 0 IAB: 0 Ectopic: 0 Livin Cesareans: 0 VBACs: 0 Multiple Births: 0 Gestational Diabetes: No Rh Sensitization: No Incompetent Cervix: No CHEPE: No Infertility: No ART Treatment: No Uterine Anomaly: No IUGR: No Hx Previous C/S: No Macrosomia: No Hx Loss/Stillborn: No PIH: No Hx : No Placenta Previa/Abruption: No Depression/PP Depression: No PTL/PROM: No Post Hemorrhage: No Current Procedures: Ultrasound Obstetrical History Comments: G1 current SEE RECORDS Alcohol: No Marijuana : No Cocaine: No Other Illicit Drugs: No Cigarettes: Never Smoker. [id number] MEDICAL HISTORY Diabetes: No Blood Transfusion: No Pulmonary Disease (Asthma, TB): No Breast Disease: No Hypertension: No Ground Wirer Surgery: No Heart Disease: No Hosp/Surgery: Yes Autoimmune Disorder: No Anesthetic Complications: No Kidney Disease: No Abnormal Pap Smear: No Neuro/Epilepsy: No Psychiatric Disorders: Yes Other Medical Diseases: No Hepatitis/Liver Disease: No Significant Family History: No Varicosities/Phlebitis: No Trauma/Violence : No Thyroid Dysfunction: No Medical History Comments: Severe GERD, Esoph Dysphagia, Hyperlipidemia, Anxiety, Acid Reflux Tonsillectomy INFECTIOUS HISTORY Gonorrhea: No Genital Herpes: No Chlamydia: No Tuberculosis: No Syphilis: No Hepatitis: No HIV/AIDS Exposure: No Rash or Viral Illness: No HPV: No PHYSICAL EXAM General: Normal HEENT: Normal Neurologic: Normal Thyroid: Deferred Heart: Normal Lungs: Normal Breast: Deferred Back: Normal Abdomen: Normal Genitourinary Exam: Deferred Extremities: Normal DTRs: Normal Pelvic Type: Not Done Physical Exam Comments: Gravid Vital Signs: Reviewed; Within Normal Limits VAGINAL EXAM Dilatation: 8 Effacement: 100 Station: -1 MEMBRANES Membranes: Ruptured Amniotic Fluid Color: Clear FETUS A EGA: 39.3 Monitoring: External US FHR- Baseline: 135 Variability: Moderate 6-25bpm Accelerations: 15X15 Decelerations: None FHR Category: Category I Presentation: Vertex Admit Comment: G1 Severe GERD, esophageal dysphagia Positive amnisure Admitted for SROM-will begin Pitocin as not in labor PLANS FOR LABOR AND DELIVERY Labor and Delivery: None Pain Management: Epidural Feeding Preference: Breast Benefit of Breast Feed Discussed: Yes Circumcision: Yes INFORMED CONSENT Assignment: Bobby Lozano MD Signature: with User ID: [email or web address] : with User ID: [email or web address] : I personally evaluated and examined the patient in conjunction with the MLP and agree with the assessment, treatment plan and disposition.
--- NOTE | 2016-12-13 18:53 | Delivery Summary ---
Del Sum A-C Datetime Report Generated by CPN: 12/13/2016 18:53 ADMISSION DATA Chief Complaint: Suspected Ruptured Membranes Indication for Induction: Not Applicable Admission Impression: Term, Intrauterine ; Ruptured Membranes Admission Impression Comments: SROM at 0500 Admit Provider Comments: G1 Severe GERD, esophageal dysphagia Positive amnisure Admitted for SROM-will begin Pitocin as not in labor DELIVERY PERSONNEL Delivery Doctor:: Kelly Escalera CNM Nurse Locker Plant Attendant Certified:: Kelly Escalera CNM Anesthesiologist:: Heriberto Carrasquillo MD Labor and Delivery Nurse:: Jacinta Carbone RNwinter sports manager Nurse:: RUTHY Peñaloza Monitor Technician/SWITCH TECHNICIAN: Deisy Haines CNA II Monitor Technician/SWITCH TECHNICIAN: Yelena Batista CST MATERNAL INFORMATION Delivery Anesthesia: Epidural Medications After Delivery: Pitocin Drip 20 Units/1000ml NSS Estimated Blood Loss (ml): 200 Maternal Complications: None Provider Comments: of live male in vertex OA to ALEX at 1612 under epidural anesthesia. Caput present. Spontaneous respirations and cry. 3-vessel cord. Apgars 9-9. Cord clamped x2, after 2 min delay, then cut by FOB. Placenta, membranes, and cord expelled at 1616, Lujan presentation. Lacerations repaired as noted above. FF at U-3. Lochia minimal. Patient tolerated procedure well. LABOR SUMMARY EDC: 12/17/2016 00:00 No. Babies in Womb: 1 Labor Anesthesia: Epidural LABOR INFORMATION Reason for Induction: Not Applicable Onset of Labor: 12/13/2016 09:30 Complete Dilatation: 12/13/2016 13:01 Oxytocin: Augmentation Group B Beta Strep: negative Antibiotics # of Doses: 0 Steroids Given: None Reason Steroids Not Administered: Not Applicable MEMBRANES Membranes Rupture Method: Spontaneous Rupture of Membranes: 12/13/2016 05:00 Length of Rupture (hr): 11.20 Amniotic Fluid Color: Clear Amniotic Fluid Amount: Moderate Amniotic Fluid Odor: Normal STAGES OF LABOR Stage 1 hr: 3 Stage 1 min: 31 Stage 2 hr: 3 Stage 2 min: 11 Stage 3 hr: 0 Stage 3 min: 4 Total Time in Labor hr: 6 Total Time in Labor min: 46 VAGINAL DELIVERY Episiotomy: None Laceration Extension: Second Degree Laceration Type: Vaginal Other Laceration: left labial Laceration Repair: Yes Laceration Repair Note: 2nd degree vaginal tear repaired w 2-0 Chromic with interrupted stitches. 1st degree left labial tear repaired with 3-0 Chromic with interrupted stitches. Sponge Count Correct: N/A Sharps Count Correct: Yes BABY A INFORMATION Infant Delivery Date/Time: 12/13/2016 16:12 Method of Delivery: Vaginal Born in Route : No : N/A Forceps: N/A Vacuum Extraction: N/A Shoulder Dystocia : No PRESENTATION/POSITION BABY A Presentation: Cephalic Cephalic Presentation: Vertex Breech Presentation: N/A PLACENTA INFORMATION BABY A Placenta Delivery Time : 12/13/2016 16:16 Placenta Method of Delivery: Spontaneous Placenta Status: Delivered SCORES BABY A Heart Rate 1 min: >100 bpm Resp Effort 1 min: Good Cry Reflex Irritability 1 min: Cough or Sneeze or Pulls Away Muscle Tone 1 min: Active Motion Color 1 min: Body [place], Extremities Blue Resuscitation Effort 1 min: Tactile Stimulation SCORE 1 MIN: 9 Heart Rate 5 min: >100 bpm Resp Effort 5 min: Good Cry Reflex Irritability 5 min: Cough or Sneeze or Pulls Away Muscle Tone 5 min: Active Motion Color 5 min: Body [place], Extremities Blue Resuscitation Effort 5 min: Tactile Stimulation SCORE 5 MIN: 9 INFORMATION BABY A Gestational Age at Delivery: 39.3 Gestational Status: Full Term- 39- 40.6 Weeks Infant Outcome : Liveborn Condition : Stable Infant Sex: Male IDENTIFICATION BABY A Infant Verification Date/Time: 12/13/2016 16:32 ID Band Number: [id number] Mother's Name Verified: Yes Infant RN Verifying Infant: ISABELLA URIBE, RN Additional Verifying Personnel: D CHELSIE, C WEIGHT/LENGTH BABY A Infant Birthweight (gm): 3650 Weight (lb): 8 Infant Weight (oz): 1 Length (in): 19.75 Infant Length (cm): 50.17 CORD INFORMATION BABY A No. Cord Vessels: 3 Nuchal Cord : N/A Cord Blood Taken: Yes-For Eval (Mom's Blood Type - or O+) Infant Suction: Mouth; Nose ASSESSMENT BABY A Complications: None Physical Findings at Delivery: Caput Succedaneum Infant Respirations: Appears Normal Skin to Skin: Yes Skin to Skin Time (min): 60 Transportation Worker/ALS Called : No Care By: Jas Claros RN Transferred To: [facility] SIGNATURES Assignment: Bobby Lozano MD Signature: with User ID: [email or web address] : with User ID: [email or web address] : I personally evaluated and examined the patient in conjunction with the MLP and agree with the assessment, treatment plan and disposition.
--- NOTE | 2016-12-13 19:01 | L&D Flow Sheet ---
LD Flowsheet Datetime Report Generated by CPN: 12/13/2016 19:00 Datetime: 12/13/2016 18:15 Respirations: 16 (Jacinta Carbone RN) Temperature (F): 98.7 (Jacinta Carbone RN) Temperature (C): 37.1 (QS system process) Pain Scale: 0 (Jacinta Carbone RN) Pain Presence: None/Denies (Jacinta Carbone RN) Pain Type: N/A (Jacinta Carbone RN) LaborFlag: Antepartum (QS system process) Datetime: 12/13/2016 18:06 NBP Sys/Becky/Mean (mmHg): 115 (QS system process) : 71 (QS system process) : 86 (QS system process) Pulse: 113 (QS system process) LaborFlag: Antepartum (QS system process) Datetime: 12/13/2016 17:51 NBP Sys/Becky/Mean (mmHg): 112 (QS system process) : 64 (QS system process) : 83 (QS system process) Pulse: 116 (QS system process) LaborFlag: Antepartum (QS system process) Datetime: 12/13/2016 17:45 Respirations: 17 (Jacinta Raf, RN) Pain Scale: 0 (Jacinta Carbone, RN) Pain Presence: None/Denies (Jacinta Raf, RN) Pain Type: N/A (Jacinta Raf, RN) LaborFlag: Antepartum (QS system process) Datetime: 12/13/2016 17:36 NBP Sys/Becky/Mean (mmHg): 114 (QS system process) : 60 (QS system process) : 80 (QS system process) Pulse: 110 (QS system process) LaborFlag: Antepartum (QS system process) Datetime: 12/13/2016 17:30 Respirations: 17 (Jacinta Carbone, RN) Temperature (F): 98.0 (Jacinta Carbone, RN) Temperature (C): 36.7 (QS system process) Pain Scale: 0 (Jacinta Carbone, RN) Pain Presence: None/Denies (Jacinta Carbone, RN) Pain Type: N/A (Jacinta Raf, RN) LaborFlag: Antepartum (QS system process) Datetime: 12/13/2016 17:21 NBP Sys/Becky/Mean (mmHg): 114 (QS system process) : 58 (QS system process) : 81 (QS system process) Pulse: 85 (QS system process) LaborFlag: Antepartum (QS system process) Datetime: 12/13/2016 17:15 Respirations: 16 (Jacinta Raf, RN) Pain Scale: 0 (Jacinta Raf, RN) Pain Presence: None/Denies (Jacinta Raf, RN) Pain Type: N/A (Jacinta Raf, RN) LaborFlag: Antepartum (QS system process) Datetime: 12/13/2016 17:06 NBP Sys/Becky/Mean (mmHg): 103 (QS system process) : 55 (QS system process) : 75 (QS system process) Pulse: 96 (QS system process) LaborFlag: Antepartum (QS system process) Datetime: 12/13/2016 17:00 Respirations: 16 (Jacinta Raf, RN) Pain Scale: 0 (Jacinta Raf, RN) Pain Presence: None/Denies (Jacinta Raf, RN) Pain Type: N/A (Jacinta Raf, RN) LaborFlag: Antepartum (QS system process) Datetime: 12/13/2016 16:51 NBP Sys/Becky/Mean (mmHg): 101 (QS system process) : 54 (QS system process) : 74 (QS system process) Pulse: 106 (QS system process) LaborFlag: Antepartum (QS system process) Datetime: 12/13/2016 16:45 Respirations: 16 (Jacinta Raf, RN) Pain Scale: 0 (Jacinta Raf, RN) Pain Presence: None/Denies (Jacinta Raf, RN) Pain Type: N/A (Jacinta Raf, RN) LaborFlag: Antepartum (QS system process) Datetime: 12/13/2016 16:36 NBP Sys/Becky/Mean (mmHg): 99 (QS system process) : 53 (QS system process) : 70 (QS system process) Pulse: 117 (QS system process) LaborFlag: Antepartum (QS system process) Datetime: 12/13/2016 16:30 Respirations: 15 (Jacinta Raf, RN) Pain Scale: 0 (Jacinta Raf, RN) Pain Presence: None/Denies (Jacinta Raf, RN) Pain Type: N/A (Jacinta Raf, RN) LaborFlag: Antepartum (QS system process) Datetime: 12/13/2016 16:21 NBP Sys/Becky/Mean (mmHg): 113 (QS system process) : 55 (QS system process) : 75 (QS system process) Pulse: 109 (QS system process) LaborFlag: Antepartum (QS system process) Datetime: 12/13/2016 16:15 Respirations: 16 (Jacinta Raf, RN) Pain Scale: 0 (Jacinta Raf, RN) Pain Presence: None/Denies (Jacinta Raf, RN) Pain Type: N/A (Jacinta Raf, RN) LaborFlag: Antepartum (QS system process) Datetime: 12/13/2016 16:11 Monitor Mode: External (Jacinta Raf, RN) Frequency (min): 1-3 (Jacinta Raf, RN) Quality: Strong (Jacinta Raf, RN) Duration (sec): 60-80 (Jacinta Raf, RN) Resting Tone (Palpate): Relaxed (Jacinta Raf, RN) Monitor Mode: External US (Jacinta Raf, RN) Comments: unable to determine baseline due to pt pushing (Jacinta Raf, RN) Datetime: 12/13/2016 16:03 Communication Comments: Dr. Lozano at bedside (Jacinta Raf, RN) Datetime: 12/13/2016 16:00 Monitor Mode: External (Jacinta Raf, RN) Frequency (min): 1-3 (Jacinta Raf, RN) Quality: Moderate to Strong (Jacinta Raf, RN) Duration (sec): 60-90 (Jacinta Raf, RN) Resting Tone (Palpate): Relaxed (Jacinta Raf, RN) Monitor Mode: External US (Jacinta Raf, RN) FHR Baseline Rate : 135 (Jacinta Raf, RN) Variability: Moderate 6-25 bpm (Jacinta Raf, RN) Accelerations: 15X15 (Jacinta Raf, RN) Decelerations: Variable (Jacinta Raf, RN) Datetime: 12/13/2016 15:56 Stage 2 Comments: VenkatOly Escalera CNM at bedside (Jacinta Raf, RN) Datetime: 12/13/2016 15:51 NBP Sys/Becky/Mean (mmHg): 109 (QS system process) : 56 (QS system process) : 78 (QS system process) Pulse: 129 (QS system process) LaborFlag: Antepartum (QS system process) Datetime: 12/13/2016 15:45 Monitor Mode: External (Jacinta Raf, RN) Frequency (min): 1-3 (Jacinta Raf, RN) Quality: Moderate to Strong (Jacinta Raf, RN) Duration (sec): 60-90 (Jacinta Raf, RN) Resting Tone (Palpate): Relaxed (Jacinta Raf, RN) Monitor Mode: External US (Jacinta Raf, RN) FHR Baseline Rate : 150 (Jacinta Raf, RN) Variability: Moderate 6-25 bpm (Jacinta Raf, RN) Accelerations: 15X15 (Jacinta Raf, RN) Decelerations: None (Jacinta Raf, RN) Datetime: 12/13/2016 15:37 NBP Sys/Becky/Mean (mmHg): 135 (QS system process) : 81 (QS system process) : 92 (QS system process) Pulse: 166 (QS system process) LaborFlag: Antepartum (QS system process) Datetime: 12/13/2016 15:31 Monitor Mode: External (Jacinta Raf, RN) Frequency (min): 1-2 (Jacinta Raf, RN) Quality: Moderate to Strong (Jacinta Raf, RN) Duration (sec): 60-90 (Jacinta Raf, RN) Resting Tone (Palpate): Relaxed (Jacinta Raf, RN) Monitor Mode: External US (Jacinta Raf, RN) FHR Baseline Rate : 140 (Jacinta Raf, RN) Variability: Moderate 6-25 bpm (Jacinta Raf, RN) Accelerations: None (Jacinta Raf, RN) Decelerations: Early (Jacinta Raf, RN) Datetime: 12/13/2016 15:30 Temperature (F): 97.9 (Jacinta Raf, RN) Temperature (C): 36.6 (QS system process) LaborFlag: Antepartum (QS system process) Datetime: 12/13/2016 15:24 Stage 2 Comments: pushing left tilt (Jacinta Raf, RN) Datetime: 12/13/2016 15:16 Monitor Mode: External (Jacinta Raf, RN) Frequency (min): 1-3 (Jacinta Raf, RN) Quality: Moderate to Strong (Jacinta Raf, RN) Duration (sec): 60-90 (Jacinta Raf, RN) Resting Tone (Palpate): Relaxed (Jacinta Raf, RN) Monitor Mode: External US (Jacinta Raf, RN) FHR Baseline Rate : 135 (Jacinta Raf, RN) Variability: Moderate 6-25 bpm (Jacinta Raf, RN) Accelerations: 15X15 (Jacinta Raf, RN) Decelerations: None (Jacinta Raf, RN) Datetime: 12/13/2016 15:06 NBP Sys/Becky/Mean (mmHg): 129 (QS system process) : 60 (QS system process) : 86 (QS system process) Pulse: 146 (QS system process) LaborFlag: Antepartum (QS system process) Datetime: 12/13/2016 15:04 Stage 2 Comments: pushing with squat bar (Jacinta Raf, RN) Datetime: 12/13/2016 15:00 Monitor Mode: External (Jacinta Raf, RN) Frequency (min): 1-3 (Jacinta Raf, RN) Quality: Moderate (Jacinta Raf, RN) Duration (sec): 60-90 (Jacinta Raf, RN) Resting Tone (Palpate): Relaxed (Jacinta Raf, RN) Monitor Mode: External US (Jacinta Raf, RN) FHR Baseline Rate : 135 (Jacinta Raf, RN) Variability: Moderate 6-25 bpm (Jacinta Raf, RN) Accelerations: None (Jacinta Raf, RN) Decelerations: Early (Jacinta Raf, RN) Datetime: 12/13/2016 14:52 NBP Sys/Becky/Mean (mmHg): 116 (QS system process) : 58 (QS system process) : 83 (QS system process) Pulse: 111 (QS system process) LaborFlag: Antepartum (QS system process) Datetime: 12/13/2016 14:45 Monitor Mode: External (Jacinta Raf, RN) Frequency (min): 1-3 (Jacinta Raf, RN) Quality: Moderate to Strong (Jacinta Raf, RN) Duration (sec): 60-90 (Jacinta Raf, RN) Resting Tone (Palpate): Relaxed (Jacinta Raf, RN) Monitor Mode: External US (Jacinta Raf, RN) FHR Baseline Rate : 135 (Jacinta Raf, RN) Variability: Moderate 6-25 bpm (Jacinta Raf, RN) Accelerations: None (Jacinta Raf, RN) Decelerations: Early (Jacinta Raf, RN) Datetime: 12/13/2016 14:41 Pitocin (milliunit): Pitocin Increased to (milliunits) @ 4 (Jacinta Raf, RN) Datetime: 12/13/2016 14:38 NBP Sys/Becky/Mean (mmHg): 117 (QS system process) : 56 (QS system process) : 80 (QS system process) Pulse: 104 (QS system process) LaborFlag: Antepartum (QS system process) Datetime: 12/13/2016 14:30 Monitor Mode: External; Palpation (Jacinta Raf, RN) Frequency (min): 2-4 (Jacinta Raf, RN) Quality: Moderate to Strong (Jacinta Raf, RN) Duration (sec): 60-90 (Jacinta Raf, RN) Resting Tone (Palpate): Relaxed (Jacinta Raf, RN) Monitor Mode: External US (Jacinta Raf, RN) FHR Baseline Rate : 145 (Jacinta Raf, RN) Variability: Moderate 6-25 bpm (Jacinta Raf, RN) Accelerations: 15X15 (Jacinta Raf, RN) Decelerations: None (Jacinta Raf, RN) Datetime: 12/13/2016 14:26 Pitocin (milliunit): Pitocin Started (milliunits) @ 2 (Jacinta Raf, RN) Datetime: 12/13/2016 14:24 Stage 2 Comments: pushing tug of war (Jacinta Raf, RN) Datetime: 12/13/2016 14:07 NBP Sys/Becky/Mean (mmHg): 130 (QS system process) : 58 (QS system process) : 84 (QS system process) Pulse: 108 (QS system process) LaborFlag: Antepartum (QS system process) Datetime: 12/13/2016 14:00 Monitor Mode: External; Palpation (Jacinta Raf, RN) Frequency (min): 1-4 (Jacinta Arf, RN) Quality: Moderate to Strong (Jacinta Raf, RN) Duration (sec): 60-90 (Jacinta Raf, RN) Resting Tone (Palpate): Relaxed (Jacinta Raf, RN) Monitor Mode: External US (Jacinta Raf, RN) FHR Baseline Rate : 135 (Jacinta Raf, RN) Variability: Moderate 6-25 bpm (Jacinta Raf, RN) Accelerations: 15X15 (Jacinta Raf, RN) Decelerations: None (Jacinta Raf, RN) Datetime: 12/13/2016 13:54 Dilatation (cm): 10.0 (Jacinta Raf, RN) Effacement (%): 100 (Jacinta Raf, RN) Station: 2 (Jacinta Raf, RN) Exam by: Stas Cheng RN (Jacinta Raf, RN) Pushing: Urge to Push (Jacinta Tymes, RN) Pushing Position: Pushing with Contractions (Jacinta Raf, RN) Pushing Progress: Descent with Pushing (Jacinta Raf, RN) Datetime: 12/13/2016 13:53 NBP Sys/Becky/Mean (mmHg): 119 (QS system process) : 56 (QS system process) : 80 (QS system process) Pulse: 114 (QS system process) LaborFlag: Antepartum (QS system process) Datetime: 12/13/2016 13:36 NBP Sys/Becky/Mean (mmHg): 125 (QS system process) : 67 (QS system process) : 88 (QS system process) Pulse: 116 (QS system process) LaborFlag: Antepartum (QS system process) Datetime: 12/13/2016 13:30 Monitor Mode: External (Jacinta Raf, RN) Frequency (min): 1-3 (Jacinta Raf, RN) Quality: Moderate to Strong (Jacinta Raf, RN) Duration (sec): 60-90 (Jacinta Raf, RN) Resting Tone (Palpate): Relaxed (Jacinta Raf, RN) Monitor Mode: External US (Jacinta Raf, RN) FHR Baseline Rate : 135 (Jacinta Raf, RN) Variability: Moderate 6-25 bpm (Jacinta Raf, RN) Accelerations: None (Jacinta Raf, RN) Decelerations: None (Jacinta Raf, RN) Datetime: 12/13/2016 13:21 NBP Sys/Becky/Mean (mmHg): 125 (QS system process) : 60 (QS system process) : 83 (QS system process) Pulse: 110 (QS system process) LaborFlag: Antepartum (QS system process) Datetime: 12/13/2016 13:20 Temperature (F): 98.1 (Jacinta Carbone RN) Temperature (C): 36.7 (QS system process) LaborFlag: Antepartum (QS system process) Datetime: 12/13/2016 13:07 NBP Sys/Becky/Mean (mmHg): 114 (QS system process) : 56 (QS system process) : 81 (QS system process) Pulse: 120 (QS system process) LaborFlag: Antepartum (QS system process) Datetime: 12/13/2016 13:01 Dilatation (cm): 10.0 (Jacinta Carbone RN) Effacement (%): 100 (Jacinta Carbone RN) Station: 1 (Jacinta Carbone RN) Exam by: Shanna Carbone RN (Jacinta Carbone RN) Vaginal Exam Comments: Tres Escalera CNM informed of SVE, instructed to have pt labor down (Jacinta Raf, RN) Datetime: 12/13/2016 13:00 Monitor Mode: External (Jacinta Raf, RN) Frequency (min): 1-3 (Jacinta Raf, RN) Quality: Moderate to Strong (Jacinta Raf, RN) Duration (sec): 50-80 (Jacinta Raf, RN) Resting Tone (Palpate): Relaxed (Jacinta Raf, RN) Monitor Mode: External US (Jacinta Raf, RN) FHR Baseline Rate : 135 (Jacinta Raf, RN) Variability: Moderate 6-25 bpm (Jacinta Raf, RN) Accelerations: 15X15 (Jacinta Raf, RN) Decelerations: None (Jacinta Raf, RN) Datetime: 12/13/2016 12:51 NBP Sys/Becky/Mean (mmHg): 111 (QS system process) : 59 (QS system process) : 78 (QS system process) Pulse: 120 (QS system process) LaborFlag: Antepartum (QS system process) Datetime: 12/13/2016 12:37 NBP Sys/Becky/Mean (mmHg): 117 (QS system process) : 64 (QS system process) : 85 (QS system process) Pulse: 115 (QS system process) LaborFlag: Antepartum (QS system process) Datetime: 12/13/2016 12:30 Monitor Mode: External; Palpation (Jacinta Raf, RN) Frequency (min): 1-3 (Jacinta Raf, RN) Quality: Moderate to Strong (Jacinta Raf, RN) Duration (sec): 50-80 (Jacinta Raf, RN) Resting Tone (Palpate): Relaxed (Jacinta Raf, RN) Monitor Mode: External US (Jacinta Raf, RN) FHR Baseline Rate : 140 (Jacinta Raf, RN) Variability: Moderate 6-25 bpm (Jacinta Raf, RN) Accelerations: None (Jacinta Raf, RN) Decelerations: None (Jacinta Raf, RN) Datetime: 12/13/2016 12:21 NBP Sys/Becky/Mean (mmHg): 116 (QS system process) : 55 (QS system process) : 79 (QS system process) Pulse: 113 (QS system process) LaborFlag: Antepartum (QS system process) Datetime: 12/13/2016 12:06 NBP Sys/Becky/Mean (mmHg): 125 (QS system process) : 65 (QS system process) : 85 (QS system process) Pulse: 109 (QS system process) LaborFlag: Antepartum (QS system process) Datetime: 12/13/2016 12:05 Patient Position/Activity: Tailors (Jacinta Raf, RN) Datetime: 12/13/2016 12:00 Monitor Mode: External (Jacinta Raf, RN) Frequency (min): 2-4 (Jacinta Raf, RN) Quality: Moderate to Strong (Jacinta Raf, RN) Duration (sec): 60-80 (Jacinta Raf, RN) Resting Tone (Palpate): Relaxed (Jacinta Raf, RN) Monitor Mode: External US (Jacinta Raf, RN) FHR Baseline Rate : 150 (Jacinta Raf, RN) Variability: Moderate 6-25 bpm (Jacinta Raf, RN) Accelerations: None (Jacinta Raf, RN) Decelerations: None (Jacinta Raf, RN) Datetime: 12/13/2016 11:51 NBP Sys/Becky/Mean (mmHg): 109 (QS system process) : 53 (QS system process) : 75 (QS system process) Pulse: 112 (QS system process) Patient Position/Activity: Right Lateral; Peanut Ball (Jacinta Raf, RN) LaborFlag: Antepartum (QS system process) Datetime: 12/13/2016 11:44 Dilatation (cm): 8.5 (Jacinta Carbone RN) Effacement (%): 90 (Jacinta Carbone RN) Station: -1 (Jacinta Carbone RN) Exam by: Tres Escalera CNM (Jacinta Carbone RN) Membrane Comments: fore bag ruptured (Jacinta Carbone RN) Datetime: 12/13/2016 11:36 NBP Sys/Becky/Mean (mmHg): 121 (QS system process) : 57 (QS system process) : 79 (QS system process) Pulse: 101 (QS system process) LaborFlag: Antepartum (QS system process) Datetime: 12/13/2016 11:30 Monitor Mode: External (Jacinta Raf, RN) Frequency (min): 1-3 (Jacinta Raf, RN) Quality: Moderate to Strong (Jacinta Raf, RN) Duration (sec): 60-80 (Jacinta Raf, RN) Resting Tone (Palpate): Relaxed (Jacinta Raf, RN) Monitor Mode: External US (Jacinta Raf, RN) FHR Baseline Rate : 145 (Jacinta Raf, RN) Variability: Moderate 6-25 bpm (Jacinta Raf, RN) Accelerations: None (Jacinta Raf, RN) Decelerations: None (Jacinta Raf, RN) Datetime: 12/13/2016 11:22 NBP Sys/Becky/Mean (mmHg): 120 (QS system process) : 58 (QS system process) : 83 (QS system process) Pulse: 106 (QS system process) LaborFlag: Antepartum (QS system process) Datetime: 12/13/2016 11:06 NBP Sys/Becky/Mean (mmHg): 122 (QS system process) : 60 (QS system process) : 86 (QS system process) Pulse: 113 (QS system process) LaborFlag: Antepartum (QS system process) Datetime: 12/13/2016 11:00 Temperature (F): 98.3 (Jacinta Raf, RN) Temperature (C): 36.8 (QS system process) Monitor Mode: External (Jacinta Raf, RN) Frequency (min): 2-4 (Jacinta Raf, RN) Quality: Moderate to Strong (Jacinta Raf, RN) Duration (sec): 40-80 (Jacinta Raf, RN) Resting Tone (Palpate): Relaxed (Jacinta Raf, RN) Monitor Mode: External US (Jacinta Raf, RN) FHR Baseline Rate : 135 (Jacinta Raf, RN) Variability: Moderate 6-25 bpm (Jacinta Raf, RN) Accelerations: None (Jacinta Raf, RN) Decelerations: None (Jacinta Raf, RN) LaborFlag: Antepartum (QS system process) Datetime: 12/13/2016 10:53 Pain Scale: 1 (Jacinta Raf, RN) Pain Presence: Intermittent (Jacinta Raf, RN) Pain Type: Contraction (Jacinta Raf, RN) Pain Location: Perineum (Jacinta Raf, RN) Pain Relief Measures: Comfort Measures (Jacinta Raf, RN) LaborFlag: Antepartum (QS system process) Datetime: 12/13/2016 10:51 NBP Sys/Becky/Mean (mmHg): 129 (QS system process) : 58 (QS system process) : 84 (QS system process) Pulse: 107 (QS system process) LaborFlag: Antepartum (QS system process) Datetime: 12/13/2016 10:50 NBP Sys/Becky/Mean (mmHg): 129 (QS system process) : 70 (QS system process) : 91 (QS system process) Pulse: 121 (QS system process) LaborFlag: Antepartum (QS system process) Datetime: 12/13/2016 10:49 NBP Sys/Becky/Mean (mmHg): 123 (QS system process) : 58 (QS system process) : 87 (QS system process) Pulse: 113 (QS system process) LaborFlag: Antepartum (QS system process) Datetime: 12/13/2016 10:48 NBP Sys/Becky/Mean (mmHg): 127 (QS system process) : 62 (QS system process) : 89 (QS system process) Pulse: 113 (QS system process) LaborFlag: Antepartum (QS system process) Datetime: 12/13/2016 10:47 NBP Sys/Becky/Mean (mmHg): 135 (QS system process) : 60 (QS system process) : 87 (QS system process) Pulse: 116 (QS system process) I/O Interventions: Recio Cath Inserted (Jacinta Carbone RN) Patient Care Comments: pt tolerated well (Jacinta Carbone RN) LaborFlag: Antepartum (QS system process) Datetime: 12/13/2016 10:46 NBP Sys/Becky/Mean (mmHg): 124 (QS system process) : 68 (QS system process) : 87 (QS system process) Pulse: 126 (QS system process) LaborFlag: Antepartum (QS system process) Datetime: 12/13/2016 10:45 NBP Sys/Becky/Mean (mmHg): 129 (QS system process) : 70 (QS system process) : 94 (QS system process) Pulse: 116 (QS system process) Monitor Mode: External (Jacinta Carbone RN) Frequency (min): 3-4 (Jacinta Carbone RN) Quality: Moderate to Strong (Jacinta Raf, RN) Duration (sec): 60-90 (Jacinta Raf, RN) Resting Tone (Palpate): Relaxed (Jacinta Raf, RN) Monitor Mode: External US (Jacinta Raf, RN) FHR Baseline Rate : 140 (Jacinta Raf, RN) Variability: Moderate 6-25 bpm (Jacinta Raf, RN) Accelerations: None (Jacinta Raf, RN) Decelerations: None (Jacinta Raf, RN) Dilatation (cm): 8.0 (Jacinta Raf, RN) Effacement (%): 90 (Jacinta Raf, RN) Station: 0 (Jacinta Raf, RN) Exam by: A .Raf RN (Jacinta Raf, RN) LaborFlag: Antepartum (QS system process) Datetime: 12/13/2016 10:44 NBP Sys/Bekcy/Mean (mmHg): 130 (QS system process) : 66 (QS system process) : 91 (QS system process) Pulse: 105 (QS system process) LaborFlag: Antepartum (QS system process) Datetime: 12/13/2016 10:43 NBP Sys/Becky/Mean (mmHg): 119 (QS system process) : 56 (QS system process) : 79 (QS system process) Pulse: 110 (QS system process) LaborFlag: Antepartum (QS system process) Datetime: 12/13/2016 10:42 NBP Sys/Becky/Mean (mmHg): 119 (QS system process) : 61 (QS system process) : 83 (QS system process) Pulse: 103 (QS system process) Patient Position/Activity: Left Tilt (Jacinta Carbone RN) Patient Position/Activity: Right Tilt (Jacinta Carbone RN) Anesthesia Level Check: T10- Umbilicus (Jacinta Carbone RN) LaborFlag: Antepartum (QS system process) Datetime: 12/13/2016 10:41 NBP Sys/Becky/Mean (mmHg): 115 (QS system process) : 73 (QS system process) : 90 (QS system process) Pulse: 133 (QS system process) LaborFlag: Antepartum (QS system process) Datetime: 12/13/2016 10:40 NBP Sys/Becky/Mean (mmHg): 124 (QS system process) : 79 (QS system process) : 96 (QS system process) Pulse: 122 (QS system process) LaborFlag: Antepartum (QS system process) Datetime: 12/13/2016 10:39 NBP Sys/Becky/Mean (mmHg): 144 (QS system process) : 79 (QS system process) : 106 (QS system process) Pulse: 112 (QS system process) Pulse: 114 (QS system process) SpO2 (%): 100 (QS system process) LaborFlag: Antepartum (QS system process) Datetime: 12/13/2016 10:38 NBP Sys/Becky/Mean (mmHg): 143 (QS system process) : 73 (QS system process) : 99 (QS system process) Pulse: 125 (QS system process) LaborFlag: Antepartum (QS system process) Datetime: 12/13/2016 10:37 Epidural Procedure: Test Dose (Jacinta Raf, RN) Datetime: 12/13/2016 10:35 NBP Sys/Becky/Mean (mmHg): 131 (QS system process) : 67 (QS system process) : 91 (QS system process) Pulse: 136 (QS system process) LaborFlag: Antepartum (QS system process) Datetime: 12/13/2016 10:31 Communication Comments: Leannafransisco at bedside (Jacinta Raf, RN) Datetime: 12/13/2016 10:30 Monitor Mode: External; Palpation (Jacinta Raf, RN) Frequency (min): 2-3 (Jacinta Raf, RN) Quality: Moderate to Strong (Jacinta Raf, RN) Duration (sec): 60-90 (Jacinta Raf, RN) Resting Tone (Palpate): Relaxed (Jacinta Raf, RN) Comments: unable to determine due to pt position (Jacinta Raf, RN) Datetime: 12/13/2016 10:27 Pulse: 126 (QS system process) SpO2 (%): 94 (QS system process) LaborFlag: Antepartum (QS system process) Datetime: 12/13/2016 10:26 Pulse: 113 (QS system process) SpO2 (%): 100 (QS system process) LaborFlag: Antepartum (QS system process) Datetime: 12/13/2016 10:21 NBP Sys/Becky/Mean (mmHg): 125 (QS system process) : 66 (QS system process) : 90 (QS system process) Pulse: 126 (QS system process) Pulse: 109 (QS system process) SpO2 (%): 98 (QS system process) LaborFlag: Antepartum (QS system process) Datetime: 12/13/2016 10:18 Medication Comments: Pitocin d/c'd until after epidural per Tres Escalera CNM (Jacinta Raf, RN) Datetime: 12/13/2016 10:16 Pulse: 104 (QS system process) SpO2 (%): 100 (QS system process) Comments: pt sitting up for epidural plcement, FHR monitor tracing maternal HR (Jacinta Raf, RN) LaborFlag: Antepartum (QS system process) Datetime: 12/13/2016 10:15 Monitor Mode: External; Palpation (Jacinta Raf, RN) Frequency (min): 2-4 (Jacinta Arf, RN) Quality: Moderate (Jacinta Raf, RN) Duration (sec): 60-90 (Jacinta Raf, RN) Resting Tone (Palpate): Relaxed (Jacinta Raf, RN) Monitor Mode: External US (Jacinta Raf, RN) FHR Baseline Rate : 145 (Jacinta Raf, RN) Variability: Moderate 6-25 bpm (Jacinta Raf, RN) Accelerations: 15X15 (Jacinta Raf, RN) Decelerations: None (Jacinta Raf, RN) Anesthesia Comments: pt sitting up for epidural placement (Jacinta Raf, RN) Datetime: 12/13/2016 10:05 NBP Sys/Becky/Mean (mmHg): 128 (QS system process) : 76 (QS system process) : 90 (QS system process) Pulse: 133 (QS system process) LaborFlag: Antepartum (QS system process) Datetime: 12/13/2016 10:00 Monitor Mode: External (Jacinta Raf, RN) Frequency (min): 2-3 (Jacinta Raf, RN) Quality: Moderate (Jacinta Raf, RN) Duration (sec): 50-70 (Jacinta Raf, RN) Resting Tone (Palpate): Relaxed (Jacinta Raf, RN) Monitor Mode: External US (Jacinta Raf, RN) FHR Baseline Rate : 140 (Jacinta Raf, RN) Variability: Moderate 6-25 bpm (Jacinta Raf, RN) Accelerations: None (Jacinta Raf, RN) Decelerations: None (Jacinta Raf, RN) Datetime: 12/13/2016 09:53 Anesthesia Comments: new bag of LR hung (Jacinta Raf, RN) Datetime: 12/13/2016 09:34 NBP Sys/Becky/Mean (mmHg): 133 (QS system process) : 65 (QS system process) : 91 (QS system process) Pulse: 106 (QS system process) LaborFlag: Antepartum (QS system process) Datetime: 12/13/2016 09:32 Procedure Verify: Correct Patient Identity (Jacinta Tymes, RN) Anesthesia Plans: Epidural (Jacinta Carbone RN) Epidural Positioning: Sitting (Jacinta Carbone RN) Anesthesia Comments: LR bolus stated (Jacinta Carbone, FLORA) Communication Comments: VenkatOly Escalera CNDiana on unit, order recieved to let pt have epidural (Jacinta Carbone RN) Datetime: 12/13/2016 09:30 Pain Scale: 5 (Jacinta Carbone RN) Pain Presence: Intermittent (Jacinta Carbone RN) Pain Type: Contraction (Jacinta Carbone RN) Pain Relief Measures: Comfort Measures (Jacinta Carbone RN) Pain Coping: Requesting Pain Medication or Epidural; Crying (Jacinta Carbone RN) Comfort Measures: Family Support (Jacinta Carobne RN) LaborFlag: Antepartum (QS system process) Datetime: 12/13/2016 09:23 Pitocin (milliunit): Pitocin Increased to (milliunits) @ 4 (Jacinta Carbone, FLORA) Datetime: 12/13/2016 09:20 NBP Sys/Becky/Mean (mmHg): 124 (QS system process) : 70 (QS system process) : 92 (QS system process) Pulse: 114 (QS system process) LaborFlag: Antepartum (QS system process) Datetime: 12/13/2016 09:15 Monitor Mode: External (Jacinta Raf, RN) Frequency (min): 2-4 (Jcainta Raf, RN) Quality: Moderate (Jacinta Raf, RN) Duration (sec): 70-100 (Jacinta Raf, RN) Resting Tone (Palpate): Relaxed (Jacinta Raf, RN) Monitor Mode: External US (Jacinta Raf, RN) FHR Baseline Rate : 140 (Jacinta Raf, RN) Variability: Moderate 6-25 bpm (Ajcinta Raf, RN) Accelerations: 15X15 (Jacinta Raf, RN) Decelerations: None (Jacinta Raf, RN) Datetime: 12/13/2016 09:05 NBP Sys/Becky/Mean (mmHg): 136 (QS system process) : 61 (QS system process) : 89 (QS system process) Pulse: 116 (QS system process) LaborFlag: Antepartum (QS system process) Datetime: 12/13/2016 09:00 Temperature (F): 98.2 (Jacinta Raf, RN) Temperature (C): 36.8 (QS system process) Monitor Mode: External (Jacinta Raf, RN) Frequency (min): 2-5 (Jacinta Raf, RN) Quality: Mild/Moderate (Jacinta Raf, RN) Duration (sec): 60-80 (Jacinta Raf, RN) Resting Tone (Palpate): Relaxed (Jacinta Raf, RN) Monitor Mode: External US (Jacinta Raf, RN) FHR Baseline Rate : 145 (Jacinta Raf, RN) Variability: Moderate 6-25 bpm (Jacinta Raf, RN) Accelerations: None (Jacinta Raf, RN) Decelerations: None (Jacinta Raf, RN) Pitocin (milliunit): Pitocin Started (milliunits) @ 2 (Jacinta Raf, RN) LaborFlag: Antepartum (QS system process) Datetime: 12/13/2016 08:58 Patient Position/Activity: Left Tilt (Jacinta Raf, RN) Datetime: 12/13/2016 08:53 I/O Interventions: Up to BR (Jacinta Raf, RN) Datetime: 12/13/2016 08:50 Communication Comments: P. Escalera CNM on unit, order recieved to start pitocin (Jacinta Raf, RN) Datetime: 12/13/2016 08:49 NBP Sys/Becky/Mean (mmHg): 130 (QS system process) : 65 (QS system process) : 92 (QS system process) Pulse: 111 (QS system process) LaborFlag: Antepartum (QS system process) Datetime: 12/13/2016 08:45 Monitor Mode: External (Jacinta Raf, RN) Frequency (min): 1-3 (Jacinta Raf, RN) Quality: Mild/Moderate (Jacinta Raf, RN) Duration (sec): 60-90 (Jacinta Raf, RN) Resting Tone (Palpate): Relaxed (Jacinta Raf, RN) Monitor Mode: External US (Jacinta Raf, RN) FHR Baseline Rate : 145 (Jacinta Raf, RN) Variability: Moderate 6-25 bpm (Jacinta Raf, RN) Accelerations: 15X15 (Jacinta Raf, RN) Decelerations: None (Jacinta Arf, RN) Datetime: 12/13/2016 08:36 Patient Position/Activity: Left Lateral (Jacinta Raf, RN) Datetime: 12/13/2016 08:34 NBP Sys/Becky/Mean (mmHg): 129 (QS system process) : 64 (QS system process) : 87 (QS system process) Pulse: 134 (QS system process) LaborFlag: Antepartum (QS system process) Datetime: 12/13/2016 08:30 Monitor Mode: External (Jacinta Raf, RN) Frequency (min): 2-5 (Jacinta Raf, RN) Quality: Mild (Jacinta Raf, RN) Duration (sec): 60-90 (Jacinta Raf, RN) Resting Tone (Palpate): Relaxed (Jacinta Raf, RN) Monitor Mode: External US (Jacinta Raf, RN) FHR Baseline Rate : 140 (Jacinta Raf, RN) Variability: Moderate 6-25 bpm (Jacinta Raf, RN) Accelerations: None (Jacinta Raf, RN) Decelerations: None (Jacinta Raf, RN) Datetime: 12/13/2016 08:21 NBP Sys/Becky/Mean (mmHg): 126 (QS system process) : 65 (QS system process) : 86 (QS system process) Pulse: 116 (QS system process) LaborFlag: Antepartum (QS system process) Datetime: 12/13/2016 08:15 Monitor Mode: External (Jacinta Raf, RN) Frequency (min): occ (Jacinta Raf, RN) Quality: Mild/Moderate (Jacinta Raf, RN) Resting Tone (Palpate): Relaxed (Jacinta Raf, RN) Monitor Mode: External US (Jacinta Raf, RN) FHR Baseline Rate : 135 (Jacinta Raf, RN) Variability: Moderate 6-25 bpm (Jacinta Raf, RN) Accelerations: 15X15 (Jacinta Raf, RN) Decelerations: None (Jacinta Raf, RN) Datetime: 12/13/2016 08:14 Patient Position/Activity: Left Tilt (Jacinta Raf, RN) Datetime: 12/13/2016 08:06 I/O Interventions: Up to BR (Jacinta Raf, RN) Datetime: 12/13/2016 08:05 NBP Sys/Becky/Mean (mmHg): 121 (QS system process) : 66 (QS system process) : 86 (QS system process) Pulse: 116 (QS system process) LaborFlag: Antepartum (QS system process) Datetime: 12/13/2016 08:00 Monitor Mode: External (Jacinat Raf, RN) Frequency (min): irreg (Jacinta Raf, RN) Quality: Mild (Jacinta Raf, RN) Resting Tone (Palpate): Relaxed (Jacinta Raf, RN) Monitor Mode: External US (Jacinta Raf, RN) FHR Baseline Rate : 135 (Jacinta Raf, RN) Variability: Moderate 6-25 bpm (Jacinta Raf, RN) Accelerations: 15X15 (Jacinta Raf, RN) Decelerations: None (Jacinta Raf, RN) Datetime: 12/13/2016 07:50 NBP Sys/Becky/Mean (mmHg): 128 (QS system process) : 66 (QS system process) : 87 (QS system process) Pulse: 116 (QS system process) LaborFlag: Antepartum (QS system process) Datetime: 12/13/2016 07:37 IV/Blood Work: IV Started; IV Bolus Started; IV Infusing per Order; New IV Bag Hung; IV Bag Number @ 1 (Ekta Leggett, RN) Datetime: 12/13/2016 07:30 Monitor Mode: External; Palpation (Jacinta Raf, RN) Frequency (min): irreg (Jacinta Raf, RN) Quality: Mild (Jacinta Raf, RN) Resting Tone (Palpate): Relaxed (Jacinta Raf, RN) Monitor Mode: External US (Jacinta Raf, RN) FHR Baseline Rate : 135 (Jacinta Raf, RN) Variability: Moderate 6-25 bpm (Jacinta Raf, RN) Accelerations: 15X15 (Jacinta Raf, RN) Decelerations: None (Jacinta Raf, RN) Datetime: 12/13/2016 07:15 Level of Consciousness: Fully Conscious (Jacinta Raf, RN) Headache: Denies (Jacinta Raf, RN) Breath Sounds, Left: Clear and Equal (Jacinta Raf, RN) Breath Sounds, Right: Clear and Equal (Jacinta Raf, RN) Nausea/Vomiting: Denies (Jacinta Raf, RN) RUQ Epigastric Pain: Denies (Jacinta Raf, RN) Datetime: 12/13/2016 07:13 Communication: [facility] (Augustaandra Hunter, RN) Datetime: 12/13/2016 07:08 Patient Care Comments: Lab at bedside for admission lab draw. (Nancy Hunter, RN) Datetime: 12/13/2016 07:04 NBP Sys/Becky/Mean (mmHg): 135 (QS system process) : 88 (QS system process) : 105 (QS system process) Pulse: 130 (QS system process) LaborFlag: Antepartum (QS system process) Datetime: 12/13/2016 07:00 Monitor Mode: External; Palpation (Nancy Hunter RN) Frequency (min): 2-5.5 (Nancy Hunter RN) Quality: Mild/Moderate (Nancy Hunter RN) Duration (sec): 50-100 (Nancy Hunter RN) Resting Tone (Palpate): Relaxed (Nancy Hunter, RN) Monitor Mode: External US (Nancy Hunter, RN) FHR Baseline Rate : 125 (Nancy Hunter RN) Variability: Moderate 6-25 bpm (Nancy Hunter RN) Accelerations: 10X10 (Nancy Hunter, RN) Decelerations: None (Nancy Hunter, RN)
[2016-12-13] MEDS: DOCUSATE SODIUM 100 MG CAPSULE PO SCH (21:58)
[2016-12-13] MEDS: FERROUS SULFATE 325 MG TABLET PO SCH (21:58)
[2016-12-13] MEDS ORDERED: IBUPROFEN 800 MG TABLET PO SCH (22:00)
[2016-12-13] MEDS ORDERED: FAMOTIDINE 20 MG TABLET PO SCH (22:00)
--- NOTE | 2016-12-14 06:03 | L&D Current Admission ---
Current Admit Datetime Report Generated by CPN: 12/14/2016 06:00 ADMISSION INFORMATION Current Admit Date/Time: 12/13/2016 07:15 (12/13/2016 08:30:Jacinta Carbone RN) Reason for Admission: Rupture of Membranes (12/13/2016 08:30:Jacinta Carbone RN) Chief Complaint: at 39.3 EDC 12/17/16 with complaints of leaking fluid since 0500 this morning. Pt unsure if ctx. +FM, no bleeding. (12/13/2016 06:17:Nancy Hunter RN) EGA per Dates: 39.3 (12/13/2016 08:30:QS system process) Method of Arrival: Wheelchair (12/13/2016 08:30:Jacinta Carbone RN) Admitted From: Home (12/13/2016 08:30:Jacinta Carbone RN) Reason for Induction: Not Applicable (12/13/2016 08:30:Jacinta Carbone RN) Records Available: Yes (12/13/2016 08:30:Jacinta Carbone RN) General Admission Information: Reviewed (12/13/2016 08:30:Jacinta Carbone RN) BELONGINGS/ADVANCED DIRECTIVES Other Belongings: see signed belongings consent (12/13/2016 08:30:Jacinta Carbone RN) Disposition of Belongings: Kept with Patient (12/13/2016 08:30:Jacinta Carbone RN) Advance Direct for Healthcare: No, and Wants No Information (12/13/2016 08:30:Jacinta Carbone RN) Durable Power of Film Painter: No (12/13/2016 08:30:Jacinta Carbone RN) Living Will: No (12/13/2016 08:30:Jacinta Carbone RN) Organ Donor: No (12/13/2016 08:30:Jacinta Carbone RN) Pt Rights Information Given: Yes (12/13/2016 08:30:Jacinta Carbone RN) Pt Understands Pt Rights: Yes (12/13/2016 08:30:Jacinta Carbone RN) DOMESTIC VIOLANCE SCREENING Dom Viol Threatened/Hurt: No (12/13/2016 08:30:Jacinta Carbone RN) Hx of Abuse/Neglect past 2yrs: No (12/13/2016 08:30:Jacinta Carbone RN) Feel Unsafe Going Home: No (12/13/2016 08:30:Jacinta Carbone RN) Addt'l Observ Indicating Abuse: No (12/13/2016 08:30:Jacinat Carbone RN) Reason Unable to Complete Screen: N/A, Screen Completed (12/13/2016 08:30:Jacinta Carbone RN) Considered Personal Harm/Suicide: No (12/13/2016 08:30:Jacinta Carbone RN) NUTRITIONAL/FUNCTIONAL SCREENING Problem with Appetite >5 Days: No (12/13/2016 08:30:Jacinta Carbone RN) Chew/Swallow Difficulties: No (12/13/2016 08:30:Jacinta Carbone RN) Inappropriate Wt Gain/Loss: No (12/13/2016 08:30:Jacinta Carbone RN) Presence Skin Breakdown/Ulcer: No (12/13/2016 08:30:Jacinta Carbone RN) Special Diet: No (12/13/2016 08:30:Jacinta Carbone RN) Pt Requests Asp Developer Visit: No (12/13/2016 08:30:Jacinta Carbone RN) Hx of Any of the Following?: N/A (12/13/2016 08:30:Jacinta Carbone RN) New Diagnosis of: N/A (12/13/2016 08:30:Jacinta Carbone RN) Requires Assist w/Ambulation: No (12/13/2016 08:30:Jacinta Carbone RN) Uses Assist Device to Ambulate: No (12/13/2016 08:30:Jacinta Carbone RN) Pt Requires Help w/ADL's: No (12/13/2016 08:30:Jacinta Carbone RN)
--- NOTE | 2016-12-14 06:03 | L&D General Admission ---
General Admit Datetime Report Generated by CPN: 12/14/2016 06:00 INFORMATION Patient Age: 26 (08/08/2016 17:09:QS system process) EDC: 12/17/2016 00:00 (08/08/2016 17:25:Skye Alejandro RN) : 1 (08/08/2016 17:25:Skye Alejandro RN) Para: 0 (11/21/2016 01:33:Deisy Arriola) Term: 0 (08/08/2016 17:25:Skye Alejandro RN) : 0 (08/08/2016 17:25:Skye Alejandro RN) Spontaneous Abortions: 0 (08/08/2016 17:25:Skye Alejandro RN) Induced Abortions: 0 (08/08/2016 17:25:Skye Alejandro RN) Livin (08/08/2016 17:25:Skye Alejandro RN) Cesareans: 0 (08/08/2016 17:25:Skye Alejandro RN) VBACs: 0 (08/08/2016 17:25:Skye Alejandro RN) Ectopic: 0 (08/08/2016 17:25:Skye Alejandro RN) Multiple Births: 0 (08/08/2016 17:25:Skye Alejandro RN) Baby, Number in Womb: 1 (11/21/2016 01:33:Deisy Arriola) CARE [facility] Machine Group [facility] (08/08/2016 17:25:Skye Alejandro RN) Month of 1st Visit: April (08/08/2016 17:25:Nanyc Hunter RN) Adequate Care: Yes (08/08/2016 17:25:Skye Alejandro RN) Height (in): 64 (12/13/2016 18:38:QS system process) ALLERGIES Medication Allergy: Yes (08/08/2016 17:25:Skye Alejandro RN) Medication Allergies: ibuprofen/MO/VOMITING (09/08/2016) (09/08/2016 18:10:QS system process) Latex Allergy: No Latex Allergies (08/08/2016 17:25:Skye Alejandro RN) Food Allergies: None (08/08/2016 17:25:Skye Alejandro RN) Environmental Allergies: None (08/08/2016 17:25:Skye Alejandro RN) COMMUNICATION Primary Language: Andorran (08/08/2016 17:25:Skye Alejandro RN) Medical Tx Preferred Language: Andorran (08/08/2016 17:25:Skye Alejandro RN) Communication Barrier(s): None (08/08/2016 17:25:Stefan Coats RN) DEMOGRAPHICS Address: [address] [place] [address] (08/08/2016 17:09:QS system process) Zipcode: [address] (08/08/2016 17:09:QS system process) Home (08/08/2016 17:09:QS system process) SSN: [id number] (08/08/2016 17:09:QS system process) Next of Kin Name: CHRISTELLE WELLER (08/08/2016 17:09:QS system process) Next of Kin (09/08/2016 17:03:QS system process) Next of Kin Relationship: MO (08/08/2016 17:09:QS system process) Date of : 1990 (08/08/2016 17:09:QS system process) Marital Status: (08/08/2016 17:09:QS system process) Sex: Female (08/08/2016 17:09:QS system process) Occupation: None (08/08/2016 17:25:Stefan Coats RN) Race: (08/08/2016 17:09:QS system process) Ethnicity: Non- or (08/08/2016 17:09:QS system process) Congregational: Mormon (08/08/2016 17:09:QS system process) Education: 14 (08/08/2016 17:25:Stefan Coats RN) FOB Involved: Yes (08/08/2016 17:25:Stefan Coats RN) Father of Baby Name: Gagan Delcid (08/08/2016 17:25:Stefan Coats RN) Person Auth to release pt PHI: Gagan LÓPEZ (08/08/2016 17:25:Stefan Coats RN) DRUG AND ALCOHOL USE Alcohol: No (08/08/2016 17:25:Stefan Coats RN) Cigarettes: Never Smoker. [id number] (08/08/2016 17:25:Stefan Coats RN) Marijuana: No (08/08/2016 17:25:Stefan Coats RN) Cocaine: No (08/08/2016 17:25:Stefan Coats RN) Other Illicit Drugs: No (08/08/2016 17:25:Stefan Coats RN) VACCINE HISTORY Influenza Vaccine: Yes (08/08/2016 17:25:Nancy Hunter RN) Influenza Date: 10/11/16 (08/08/2016 17:25:Nancy Hunter RN) Pneumococcal Vaccine: No (08/08/2016 17:25:Stefan Coats RN) Tetanus Vaccine: No (08/08/2016 17:25:Stefan Coats RN) Tdap Vaccine: Yes (08/08/2016 17:25:Stefan Coats RN) Tdap Date: 08/08/16 (08/08/2016 17:25:Stefan Coats RN) Hepatitis B Vaccine: Yes (08/08/2016 17:25:Stefan Coats RN) Pediatric Surgeon: [facility] (08/08/2016 17:25:Nancy Hunter RN) Feeding Preference: Breast (08/08/2016 17:25:Deisy Arriola) Benefit of Breast Feed Discussed: Yes (08/08/2016 17:25:Nancy Hunter RN) Circumcision: Yes (08/08/2016 17:25:Deisy Arriola) Classes Attended: No (08/08/2016 17:25:Deisy Arriola) Tubal Ligation: No (08/08/2016 17:25:Deisy Arriola) Tubal Authorization Signed: N/A (08/08/2016 17:25:Deisy Arriola) Consent: N/A (08/08/2016 17:25:Deisy Arriola) Consent Signed: N/A (08/08/2016 17:25:Deisy Arriola) Pain Management Plans: Epidural (08/08/2016 17:25:Stefan Coats RN) Plans for Labor and Delivery: None (08/08/2016 17:25:Stefan Coats RN) Support Person: Gagan Weller (08/08/2016 17:25:Stefan Coats RN) Support Person Relationship: Significant Other (08/08/2016 17:25:Stefan Coats RN) Other Relationship: Mother (08/08/2016 17:25:Stefan Coats RN) Cultural/Spritual Practice: No (08/08/2016 17:25:Stefan Coats RN) Spir/Cult Dietary Needs: No (08/08/2016 17:25:Stefan Coats RN) LIVING SITUATION/DISCHARGE PLAN Living Arrangements: House (08/08/2016 17:25:Stefan Coats RN) Adequate Access to:: Electric; Heat; Refrigeration; Plumbing/Running water; Phone; Transportation (08/08/2016 17:25:Stefan Coats RN) WIC Program: Yes (08/08/2016 17:25:Stefan Coats RN) Discharge Log Washer Person: Gagan Harmon (08/08/2016 17:25:Stefan Coats RN) Person to Help after Discharge: Gagan Harmon (08/08/2016 17:25:Stefan Coats RN) Currently Using Commun Resources: Yes (08/08/2016 17:25:Nancy Hunter RN) Specify Current Resource Used: Medicaid (08/08/2016 17:25:Stefan Coats RN) Outside Agency/Biological Plant Operator: No (08/08/2016 17:25:Nancy Hunter RN) Car Seat for Discharge: Yes (08/08/2016 17:25:Nancy Hunter RN) Adoption Requested: No (08/08/2016 17:25:Stefan Coats RN) Pt Contact w/infant Post : N/A (08/08/2016 17:25:Stefan Coats RN) LABS Blood Type: A Negative (08/08/2016 17:25:Stefan Coats RN) Antibody Screen: Negative (08/08/2016 17:25:Stefan Coats RN) Rho(G) this : Yes (08/08/2016 17:25:Nancy Hunter RN) Date Rho(G) Given: 09/22/16 (08/08/2016 17:25:Nancy Hunter RN) Hemoglobin: 11.5 L (12/13/2016 07:10:QS system process) Hematocrit: 34.5 L (12/13/2016 07:10:QS system process) MCV: 83 (12/13/2016 07:10:QS system process) Group Beta Strep: negative (08/08/2016 17:25:Nancy Hunter RN) Gonorrhea: Negative (08/08/2016 17:25:Nancy Hunter RN) Chlamydia: Negative (08/08/2016 17:25:Nancy Hunter RN) RPR/VDRL: Nonreactive (08/08/2016 17:25:Stefan Coats RN) HIV Exposure Test: Negative (08/08/2016 17:25:Stefan Coats RN) Hepatitis B: Negative (08/08/2016 17:25:Stefan Coats RN) Rubella: Immune (08/08/2016 17:25:Stefan Coats RN) Rubella Titer: 1.33 (08/08/2016 17:25:Stefan Coats RN) OB/PREVIOUS HISTORY Previous Procedures: None (08/08/2016 17:25:Stefan Coats RN) Current Procedures: Ultrasound (08/08/2016 17:25:Stefan Coats RN) History of Previous : No (08/08/2016 17:25:Stefan Coats RN) History of Gestational Diabetes: No (08/08/2016 17:25:Stefan Coats RN) History of PIH: No (08/08/2016 17:25:Stefan Coats RN) History of Incompetent Cervix: No (08/08/2016 17:25:Stefan Coats RN) History of Placenta Previa/Abrup: No (08/08/2016 17:25:Stefan Coats RN) History of Macrosomia: No (08/08/2016 17:25:Stefan Coats RN) History of IUGR: No (08/08/2016 17:25:Stefan Coats RN) History of Hemorrhage: No (08/08/2016 17:25:Stefan Coats RN) History of Loss/Stillborn: No (08/08/2016 17:25:Stefan Coats RN) History of : No (08/08/2016 17:25:Stefan Coats RN) History of D (Rh) Sensitization: No (08/08/2016 17:25:Stefan Coats RN) History Recurrent Loss/Stillborn: No (08/08/2016 17:25:Stefan Coats RN) History Depression/PP Depression: No (08/08/2016 17:25:Stefan Coats RN) History of Uterine Anomaly/CHEPE: No (08/08/2016 17:25:Stefan Coats RN) History of Infertility: No (08/08/2016 17:25:Stefan Coats RN) History of ART Treatment: No (08/08/2016 17:25:Stefan Coats RN) History of CHEPE: No (08/08/2016 17:25:Stefan Coats RN) Comments Obstetrical History: G1 current (08/08/2016 17:25:Stefan Coats RN) MEDICAL HISTORY Med Hx Diabetes: No (08/08/2016 17:25:Stefan Coats RN) Med Hx Hypertension: No (08/08/2016 17:25:Stefan Coats RN) Med Hx Heart Disease: No (08/08/2016 17:25:Stefan Coats RN) Med Hx Autoimmune Disorder: No (08/08/2016 17:25:Stefan Coats RN) Med Hx Kidney Disease/UTI: No (08/08/2016 17:25:Stefan Coats RN) Med Hx Neurologic/Epilepsy: No (08/08/2016 17:25:Stefan Coats RN) Med Hx Psychiatric Disorders: Yes (08/08/2016 17:25:Stefan Coats RN) Med Hx Hepatitis/Liver Disease: No (08/08/2016 17:25:Stefan Coats RN) Med Hx Varicosities/Phlebitis: No (08/08/2016 17:25:Stefan oCats RN) Med Hx Thyroid Dysfunction: No (08/08/2016 17:25:Stefan Coats RN) Med Hx Trauma/Violence: No (08/08/2016 17:25:Stefan Coats RN) Med Hx Blood Transfusion: No (08/08/2016 17:25:Stefan Coats RN) Med Hx Pulmonary (Asthma,TB): No (08/08/2016 17:25:Stefan Coats RN) Med Hx Breast: No (08/08/2016 17:25:Stefan Coats RN) Med Hx BUSINESS SYSTEMS DEVELOPER Surgery: No (08/08/2016 17:25:Stefan Coats RN) Med Hx Hospitalization/Surgery: Yes (08/08/2016 17:25:Stefan Coats RN) Med Hx Anesthetic Complications: No (08/08/2016 17:25:Stefan Coats RN) Med Hx Abnormal Pap Smear: No (08/08/2016 17:25:Stefan Coats RN) Other Medical Diseases: No (08/08/2016 17:25:Stefan Coats RN) Med Hx Significant Family Hx: No (08/08/2016 17:25:Stefan Coats RN) Details of Med/Surg Hx: Severe GERD, Esoph Dysphagia, Hyperlipidemia, Anxiety, Acid Reflux Tonsillectomy (08/08/2016 17:25:Stefan Coats RN) INFECTIOUS HISTORY Inf Hx Gonorrhea: No (08/08/2016 17:25:Stefan Coats RN) Inf Hx Chlamydia: No (08/08/2016 17:25:Stefan Coats RN) Inf Hx Syphilis: No (08/08/2016 17:25:Stefan Coats RN) Inf Hx HIV/AIDS: No (08/08/2016 17:25:Stefan Coats RN) Inf Hx Human Papilloma Virus: No (08/08/2016 17:25:Stefan Coats RN) Inf Hx Pt/Partner Genital Herpes: No (08/08/2016 17:25:Stefan Coats RN) Inf Hx Tuberculosis/Exposure: No (08/08/2016 17:25:Stefan Coats RN) Inf Hx Hepatitis B,C: No (08/08/2016 17:25:Stefan Coats RN) Inf Hx Rash or Viral Illness: No (08/08/2016 17:25:Stefan Coats RN) GENETIC HISTORY Gen Hx Age >=35 at [facility]: No (08/08/2016 17:25:Stefan Coats RN) Gen Hx Thalassemia: No (08/08/2016 17:25:Stefan Coats RN) Gen Hx Congenital Heart Defect: No (08/08/2016 17:25:Stefan Coats RN) Gen Hx Neural Tube Defect: No (08/08/2016 17:25:Stefan Coats RN) Gen Hx Down's Syndrome: No (08/08/2016 17:25:Stefan Coats RN) Gen Hx Manjit-Sachs: No (08/08/2016 17:25:Stefan Coats RN) Gen Hx Esteban: No (08/08/2016 17:25:Stefan Coats RN) Gen Hx Familial Dysautonomia: No (08/08/2016 17:25:Stefan Coats RN) Gen Hx Sickle Cell Disease/Trait: No (08/08/2016 17:25:Stefan Coats RN) Gen Hx Hemophilia/Blood Disorder: No (08/08/2016 17:25:Stefan Coats RN) Gen Hx Muscular Dystrophy: No (08/08/2016 17:25:Stefan Coats RN) Gen Hx Cystic Fibrosis: No (08/08/2016 17:25:Stefan Coats RN) Gen Hx Huntingtons Chorea: No (08/08/2016 17:25:Stefan Coats RN) Gen Hx Mental Retardation/Autism: No (08/08/2016 17:25:Stefan Coats RN) Gen Hx Tested for Fragile X: No (08/08/2016 17:25:Stefan Coats RN) Gen Hx Other Inher/Chromosomal: No (08/08/2016 17:25:Stefan Coats RN) Gen Hx Maternal Metabolic DO: No (08/08/2016 17:25:Stefan Coats RN) Gen Hx Pt Father or FOB Defect: No (08/08/2016 17:25:Stefan Coats RN) Gen Hx Other Genetic History: No (08/08/2016 17:25:Stefan Coats RN) Gen Hx Drugs/Meds since LMP: No (08/08/2016 17:25:Stefan Coats RN) Details of Genetic History: FOB is adopted, unknown medical hx (08/08/2016 17:25:Stefan Coats RN)
--- NOTE | 2016-12-14 06:23 | L&D Care Plan ---
LD CARE PLANS Datetime Report Generated by CPN: 12/14/2016 06:15 Datetime: 12/13/2016 07:07 Pain State: Risk For (Lois Fox RN) Related To: Labor and Delivery Process; Surgical Procedure; Complication(s) of ; Disease Process; Treatment and Procedures; Post (Lois Fox RN) Goal(s): Patients Pain will be Assessed and Managed; Patient will Verbalize Adequate Relief of Pain or the Ability to [place] with Current Pain (Lois Fox RN) Interventions: Assess Pain Severity on Scale of 0 (None) to 5 (Severe); Assess Type, Location and Intensity of Pain Each Time Client Reports Discomfort and Notify Provider if Unusal Pain Develops; Encourage Proper Breathing and Relaxation Techniques; Offer Alternatives Such as Repositioning, Calm Environment, Massages, Diversional Activities, Ice Pack, Splinting, and Ambulation; Administer Analgesics as Ordered; Assist with Epidural Placement as Appropriate; Evaluate Therapeutic Effectiveness of Medication and Treatments (Lois Fox RN) Outcome: Patient will Report Absence or Relief of Pain Consistent with Established Pain Goal (Lois Fox RN) Status: Ongoing (Lois Fox RN) Outcome: Patient will have a Decrease in Signs and Symptoms of Discomfort (Lois Fox RN) Status: Ongoing (Lois Fox RN) Outcome: Pain will be Controlled During Procedures (Lois Fox RN) Status: Ongoing (Lois Fox RN) Anxiety State: Risk For (Lois Fox RN) Related To: Labor and Delivery Process; Surgical Procedure; Perceived or Actual Threat to ; Fear of Unknown; Situational Crisis; Medical Interventions; Significant Life Event (Lois Fox RN) Goal(s): Patient will have Decreased Anxiety and be able to Function at Acceptable Levels (Lois Fox RN) Interventions: Assess Verbal and Nonverbal Behavioral Indicators of Anxiety; Assist Patient to Identify and Verbalize Symptoms of Anxiety; Identify and Demonstrate Techniques to Control Anxiety; Assist Patient with Coping Mechanisms to Manage Anxiety; Provide Theraputic Touch for the Patient; Explain to Patient, Using a Calm Reassuring Approach and Nonmedical Terms, All Activities, Procedures, and Concerns; Instruct Patient and Family about Post Discharge Care, Limitations, Symptoms to Report and Resources Available (Lois Fox RN) Outcome: Patient will Identify, Verbalize and Demonstrate Techniques to Control Anxiety (Lois Fox RN) Status: Ongoing (Lois Fox RN) Outcome: Patient's Posture, Facial Expressions, Gestures and Activity Level will Reflect Decreased Anxiety (Lois Fox RN) Status: Ongoing (Lois Fox RN) Outcome: Patient will Verbalize a Sense of Control and/or Acceptance of the Situation (Lois Fox RN) Status: Ongoing (Lois Fox RN) Outcome: Patient will Identify and Utilize Support Person (Lois Fox RN) Status: Ongoing (Lois Fox RN) Knowledge Deficit State: Risk For (Lois Fox RN) Related To: Labor and Delivery Process; Surgical Procedures; Treatment and Procedures; Impending Alterations in Family Dynamics; Feeding and Care; Community Resources and Available Support Mechanisms (Lois Fox RN) Goal(s): Patient will Accurately Verbalize Understanding of Plan of Care and Treatment; Patient and Family will Accurately Verbalize Understanding of the Disease Process (Lois Fox RN) Interventions: Assess Motivation and Willingness of Patient/Family to Learn; Assess Preferred Learning Mode: One to One Instruction, Reading, Videos, Group Discussion or Demonstration; Assess Barriers to Learning: Pain, Emotional State, Language Barrier, Cognitive Impairment, Visual or Hearing Deficits; Assess Patient and Family Knowledge of Disease Process, Medications and Treatment; Discuss Therapy and/or Treatment Options, Describe Rationale Behind Management, Therapy and Treatment Recommendations; Instruct Patient and Family on Signs and Symptoms to Report; Instruct Patient and Family on Medication Effects and Side Effects; Provide Appropriate and Timely Education Using Multiple Techniques; Provide Patient and Family with Support Group Information and Resources (Lois Fox RN) Outcome: Patient and Family will Verbalize Understanding of Condition, Treatment and Signs and Symptoms to Report (Lois Fox RN) Status: Ongoing (Lois Fox RN) Outcome: Patient will Identify Perceived Learning Needs and Express Motivation to Learn (Lois Fox RN) Status: Ongoing (Lois Fox RN) Outcome: Patient will Verbalize Understanding of Desired Content, and/or Performs Desired Skill Prior to Discharge (Lois Fox RN) Status: Ongoing (Lois Fox RN) Infection State: Risk For (Lois Fox RN) Related To: Surgical Procedures; Prolonged Labor or Induction; Premature/Prolonged Rupture of Membranes; Invasive Procedures; Altered Tissue Integrity (Lois Fox RN) Goal(s): The Patient will be Free of Infection, Vital Signs Stable and Lab Work within Normal Parameters (Lois Fox RN) Interventions: Instruct and Reinforce Proper Handwashing, Hygiene, and Care Techniques to Patient and Family; Monitor Vital Signs; Monitor Patient for the Following Signs of Infection: Fever, Abdominal Tenderness, Unusual Discharge; Monitor Aminiotic Fluid, Urine and Lochia for Color and Odor; Observe Wounds, Incisions and Invasive Line Sites for Redness, Drainage and Edema; Assess IV Sites per Hospital Policy; Monitor Lab and Test Results and Notify Provider of Abnormal Findings; Assess Nutritional Status and Promote Good Nutrition (Lois Fox RN) Outcome: Patient will Remain Free of Infection (Lois Fox RN) Status: Ongoing (Lois Fox RN) Outcome: Infection will be Recognized Early to Allow for Prompt Treatment (Lois Fox RN) Status: Ongoing (Lois Fox RN) Outcome: Patient will have Vital Signs Within Expected Range (Lois Fox RN) Status: Ongoing (Lois Fox RN) Fluid Volume State: Risk For (Lois Fox RN) Related To: Gestational Hypertension; Surgical Procedures; Prolonged Labor or Induction; Hemorrhage; Disease Process; Anesthesia; Altered Renal Function (Lois Fox RN) Goal(s): Patient will Achieve and Maintain a Balanced Fluid Volume Status; Hemodynamically Stable (Lois Fox RN) Interventions: Monitor Vital Signs; Auscultate Breath Sounds; Monitor Patient for Skin Turgor, Mucous Membranes, Dry Skin, Weakness, Headaches and Confusion; Provide Oral Fluids as Ordered; Initiate and Maintain Intravenous Fluids as Ordered; Monitor Intake and Output as Indicated Per Patient Status; Accurately Measure Blood Loss; Monitor Lab and Test Results as Obtained and Notify Provider of Abnormal Findings; Monitor Patient's Weight (Lois Fox RN) Outcome: Patient will have Clear Lung Sounds (Lois Fox RN) Status: Ongoing (Lois Fox RN) Outcome: Patient will have Vital Signs within Expected Range (Lois Fox RN) Status: Ongoing (Lois Fox RN) Outcome: Urine Output will be within Expected Range (Lois Fox RN) Status: Ongoing (Lois Fox RN) Outcome: Patient will have Minimal Generalized or Upper Extremity Edema (Lois Fox RN) Status: Ongoing (Lois Fox RN) Injury State: Risk For (Lois Fox RN) Related To: Labor and Delivery Process; Gestational Hypertension or Eclampsia; Anesthesia; Altered Coagulation; Risk to Status; Uteroplacental Perfusion; Decreased Mobility; Hemorrhage, Placenta Previa and or Placental Abruption; Uterine Rupture (Lois Fox RN) Goal(s): Patient will Remain Free from Injury (Lois Fox RN) Interventions: Monitoring as per Hospital Protocol; Assess Neurological Status; Perform Risk Assessment of Patients with Induction and ; Perform Fall Risk Assessment and Prevention per Hospital Protocol; Perform DVT Risk Assessment and Prophylaxis per Hospital Protocol; Ensure that Oxygen, Suction, and Resuscitation Medications and Equipment are Readily Available; Confirm Patient ID Prior to Procedure(s) and Medication Administration per Hospital Policy (Lois Fox RN) Outcome: Successful Fall Risk Prevention (Lois Fox RN) Status: Ongoing (Lois Fox RN) Outcome: Patient will Deliver without Adverse [place] (Lois Fox RN) Status: Ongoing (Lois Fox RN) Outcome: Patient's Neurological Status will Remain Stable (Lois Fox RN) Status: Ongoing (Lois Fox RN) Impaired Skin Integrity State: Risk For (Lois Fox RN) Related To: Vaginal Delivery; Surgical Procedures; Prolonged Bedrest; Altered Tissue Integrity; Invasive Procedures (Lois Fox RN) Goal(s): Patient will Maintain Optimal Skin Integrity, Free of Breakdown, Injury or Infection (Lois Fox RN) Interventions: Complete Screening for Pressure Ulcer Risk and Initiate Protocol per Hospital Policy; Monitor Site of Skin Impairment for Color Changes, Redness, Swelling, Warmth, Pain or Other Signs of Infection; Encourage and Assist with Position Changes; Monitor Patient's Mobility Status; Provide Adequate Nutrition and Fluids; Teach Patient Appropriate Hygienic Care; Teach Patient/Family Skin Care Management (Lois Fox RN) Outcome: Patient will not have Evidence of Injury Such as Skin Breakdown, Scrapes, Cuts, or Bruising (Lois Fox RN) Status: Ongoing (Lois Fox RN) Outcome: Patient will Report Any Altered Sensation or Pain at Site of Skin Impairment (Lois Fox RN) Status: Ongoing (Lois Fox RN) Outcome: Patients Incisions and Wounds will be without Signs or Symptoms of Infection (Lois Fox RN) Status: Ongoing (Lois Fox RN) Outcome: Patient will Demonstrate Understanding of Plan to Heal Skin and Prevent Reinjury and Verbalize Risk Factors (Lois Fox RN) Status: Ongoing (Lois Fox RN)
--- NOTE | 2016-12-14 06:23 | L&D Flow Sheet ---
LD Flowsheet Datetime Report Generated by CPN: 12/14/2016 06:15 Datetime: 12/13/2016 18:15 Respirations: 16 (Jacinta Carbone RN) Temperature (F): 98.7 (Jacinta Carbone RN) Temperature (C): 37.1 (QS system process) Pain Scale: 0 (Jacinta Carbone RN) Pain Presence: None/Denies (Jacinta Carbone RN) Pain Type: N/A (Jacinta Carbone RN) LaborFlag: Antepartum (QS system process)
[2016-12-14 08:42] LABS: MEAN CORPUSCULAR HEMOGLOBIN 27.2 pg (27.0-33.4); RED CELL DISTRIBUTION WIDTH 14.7 % (11.5-14.0); WHITE BLOOD COUNT 12.9 10^3/uL (4.0-10.5)
[2016-12-14 08:49] LABS: HEMATOCRIT 27.8 % (36.0-47.0); HGB HCT DIFFERENCE -0.5; MEAN CORPUSCULAR HGB CONC 32.8 g/dL (32.0-36.0); MEAN CORPUSCULAR VOLUME 83 fl (80-97); RED BLOOD COUNT 3.36 10^6/uL (3.72-5.28)
[2016-12-14 08:51] LABS: HEMOGLOBIN 9.1 g/dL (12.0-15.5)
[2016-12-14] MEDS: PRENATAL VITAMIN W-O CA NO5/FE FUMARATE/FA CAPSULE PO SCH (11:21)
[2016-12-14] MEDS: DOCUSATE SODIUM 100 MG CAPSULE PO SCH ×2 (11:21→18:21)
[2016-12-14] MEDS: FERROUS SULFATE 325 MG TABLET PO SCH ×2 (11:22→18:21)
[2016-12-14] MEDS: SENNOSIDES/DOCUSATE 8.6-50 MG 1 EACH TABLET PO SCH (11:22)
--- NOTE | 2016-12-14 13:24 | PDOC PROGRESS REPORT ---
Subjective-OB Subjective: Post Delivery Day: 26 year old. Denies any needs at this time pt reports feeling sore all over vaginal delivery history of GERD and esophagial dysphagia cannot tolerate regular foods history of anxiety all meds are liquid version [id number] mild lochia pain ok added liquid tylenol 650 mg q 6 hours anticipate d/c in Am Physical Exam (OB) Vital Signs: Temp Pulse Resp BP Pulse Ox 97.9 F 97 17 121/69 100 12/14/16 08:03 12/14/16 08:03 12/14/16 08:03 12/14/16 08:03 12/14/16 08:03 Intake & Output 12/13/16 12/14/16 12/15/16 06:59 06:59 06:59 Weight 66.85 kg - Lochia Lochia Amount: Small 10-25 ml Lochia Color: Rubra/Red - Abdomen Description: Soft Hernia Present: No Fundal Description: Firm, Midline Fundal Height: u/u - u/2 Objective-Diagnostic Laboratory: 12/14/16 08:16 12/14/16 08:16 WBC 12.9 H RBC 3.36 L Hgb 9.1 L D Hct 27.8 L MCV 83 MCH 27.2 MCHC 32.8 RDW 14.7 H Plt Count 195
--- NOTE | 2016-12-14 18:05 | L&D Current Admission ---
Current Admit Datetime Report Generated by CPN: 12/14/2016 18:00 ADMISSION INFORMATION Current Admit Date/Time: 12/13/2016 07:15 (12/13/2016 08:30:Jacinta Carbone RN) Reason for Admission: Rupture of Membranes (12/13/2016 08:30:Jacinta Carbone RN) Chief Complaint: at 39.3 EDC 12/17/16 with complaints of leaking fluid since 0500 this morning. Pt unsure if ctx. +FM, no bleeding. (12/13/2016 06:17:Nancy Hunter RN) EGA per Dates: 39.3 (12/13/2016 08:30:QS system process) Method of Arrival: Wheelchair (12/13/2016 08:30:Jacinta Carbone RN) Admitted From: Home (12/13/2016 08:30:Jacinta Carbone RN) Reason for Induction: Not Applicable (12/13/2016 08:30:Jacinta Carbone RN) Records Available: Yes (12/13/2016 08:30:Jacinta Carbone RN) General Admission Information: Reviewed (12/13/2016 08:30:Jacinta Carbone RN) BELONGINGS/ADVANCED DIRECTIVES Other Belongings: see signed belongings consent (12/13/2016 08:30:Jacinta Carbone RN) Disposition of Belongings: Kept with Patient (12/13/2016 08:30:Jacinta Carbone RN) Advance Direct for Healthcare: No, and Wants No Information (12/13/2016 08:30:Jacinta Carbone RN) Durable Power of [employer] Operator: No (12/13/2016 08:30:Jacinta Carbone RN) Living Will: No (12/13/2016 08:30:Jacinta Carbone RN) Organ Donor: No (12/13/2016 08:30:Jacinta Carbone RN) Pt Rights Information Given: Yes (12/13/2016 08:30:Jacinta Carbone RN) Pt Understands Pt Rights: Yes (12/13/2016 08:30:Jacinta Carbone RN) DOMESTIC VIOLANCE SCREENING Dom Viol Threatened/Hurt: No (12/13/2016 08:30:Jacinta Carbone RN) Hx of Abuse/Neglect past 2yrs: No (12/13/2016 08:30:Jacinta Carbone RN) Feel Unsafe Going Home: No (12/13/2016 08:30:Jacinta Carbone RN) Addt'l Observ Indicating Abuse: No (12/13/2016 08:30:Jacinta Carbone RN) Reason Unable to Complete Screen: N/A, Screen Completed (12/13/2016 08:30:Jacinta Carbone RN) Considered Personal Harm/Suicide: No (12/13/2016 08:30:Jacinta Carbone RN) NUTRITIONAL/FUNCTIONAL SCREENING Problem with Appetite >5 Days: No (12/13/2016 08:30:Jacinta Carbone RN) Chew/Swallow Difficulties: No (12/13/2016 08:30:Jacinta Carbone RN) Inappropriate Wt Gain/Loss: No (12/13/2016 08:30:Jacinta Carbone RN) Presence Skin Breakdown/Ulcer: No (12/13/2016 08:30:Jacinta Carbone RN) Special Diet: No (12/13/2016 08:30:Jacinta Carbone RN) Pt Requests Operations Agent Visit: No (12/13/2016 08:30:Jacinta Carbone RN) Hx of Any of the Following?: N/A (12/13/2016 08:30:Jacinta Carbone RN) New Diagnosis of: N/A (12/13/2016 08:30:Jacinta Carbone RN) Requires Assist w/Ambulation: No (12/13/2016 08:30:Jacinta Carbone RN) Uses Assist Device to Ambulate: No (12/13/2016 08:30:Jacinta Carbone RN) Pt Requires Help w/ADL's: No (12/13/2016 08:30:Jacinta Carbone RN)
--- NOTE | 2016-12-14 18:05 | L&D General Admission ---
General Admit Datetime Report Generated by CPN: 12/14/2016 18:00 INFORMATION Patient Age: 26 (08/08/2016 17:09:QS system process) EDC: 12/17/2016 00:00 (08/08/2016 17:25:Skye Alejandro RN) : 1 (08/08/2016 17:25:Skye Alejandro RN) Para: 0 (11/21/2016 01:33:Deisy Arriola) Term: 0 (08/08/2016 17:25:Skye Alejandro RN) : 0 (08/08/2016 17:25:Skye Alejandro RN) Spontaneous Abortions: 0 (08/08/2016 17:25:Skye Alejandro RN) Induced Abortions: 0 (08/08/2016 17:25:Skye Alejandro RN) Livin (08/08/2016 17:25:Skye Alejandro RN) Cesareans: 0 (08/08/2016 17:25:Skye Alejandro RN) VBACs: 0 (08/08/2016 17:25:Skye Alejandro RN) Ectopic: 0 (08/08/2016 17:25:Skye Alejandro RN) Multiple Births: 0 (08/08/2016 17:25:Skye Alejandro RN) Baby, Number in Womb: 1 (11/21/2016 01:33:Deisy Arriola) CARE Primary Camp Attendant: [facility] (08/08/2016 17:25:Skye Alejandro RN) Month of 1st Visit: April (08/08/2016 17:25:Nancy Hunter RN) Adequate Care: Yes (08/08/2016 17:25:Skye Alejandro RN) Height (in): 64 (12/14/2016 10:56:QS system process) ALLERGIES Medication Allergy: Yes (08/08/2016 17:25:Skye Alejandro RN) Medication Allergies: ibuprofen/MO/VOMITING (09/08/2016) (09/08/2016 18:10:QS system process) Latex Allergy: No Latex Allergies (08/08/2016 17:25:Skye Alejandro RN) Food Allergies: None (08/08/2016 17:25:Skye Alejandro RN) Environmental Allergies: None (08/08/2016 17:25:Skye Alejandro RN) COMMUNICATION Primary Language: Icelandic (08/08/2016 17:25:Skye Alejandro RN) Medical Tx Preferred Language: Icelandic (08/08/2016 17:25:Skye Alejandro RN) Communication Barrier(s): None (08/08/2016 17:25:Stefan Coats RN) DEMOGRAPHICS Address: [address] [place] [address] (08/08/2016 17:09:QS system process) Zipcode: [address] (08/08/2016 17:09:QS system process) Home (08/08/2016 17:09:QS system process) SSN: [id number] (08/08/2016 17:09:QS system process) Next of Kin Name: CHRISTELLE WELLER (08/08/2016 17:09:QS system process) Next of Kin (09/08/2016 17:03:QS system process) Next of Kin Relationship: MO (08/08/2016 17:09:QS system process) Date of : 1990 (08/08/2016 17:09:QS system process) Marital Status: (08/08/2016 17:09:QS system process) Sex: Female (08/08/2016 17:09:QS system process) Occupation: None (08/08/2016 17:25:Stefan Coats RN) Race: (08/08/2016 17:09:QS system process) Ethnicity: Non- or (08/08/2016 17:09:QS system process) Mandaeism: Buddhist (08/08/2016 17:09:QS system process) Education: 14 (08/08/2016 17:25:Stefan Coats RN) FOB Involved: Yes (08/08/2016 17:25:Stefan Coats RN) Father of Baby Name: Gagan Delcid (08/08/2016 17:25:Stefan Coats RN) Person Auth to release pt PHI: Gagan LÓPEZ (08/08/2016 17:25:Stefan Coats RN) DRUG AND ALCOHOL USE Alcohol: No (08/08/2016 17:25:Stefan Coats RN) Cigarettes: Never Smoker. [id number] (08/08/2016 17:25:Stefan Coats RN) Marijuana: No (08/08/2016 17:25:Stefan Coats RN) Cocaine: No (08/08/2016 17:25:Stefan Coats RN) Other Illicit Drugs: No (08/08/2016 17:25:Stefan Coats RN) VACCINE HISTORY Influenza Vaccine: Yes (08/08/2016 17:25:Nancy Hunter RN) Influenza Date: 10/11/16 (08/08/2016 17:25:Nancy Hunter RN) Pneumococcal Vaccine: No (08/08/2016 17:25:Stefan Coats RN) Tetanus Vaccine: No (08/08/2016 17:25:Stefan Coats RN) Tdap Vaccine: Yes (08/08/2016 17:25:Stefan Coats RN) Tdap Date: 08/08/16 (08/08/2016 17:25:Stefan Coats RN) Hepatitis B Vaccine: Yes (08/08/2016 17:25:Stefan Coats RN) Unit Coordinator: [facility] (08/08/2016 17:25:Nancy Hunter RN) Feeding Preference: Breast (08/08/2016 17:25:Deisy Arriola) Benefit of Breast Feed Discussed: Yes (08/08/2016 17:25:Nancy Hunter RN) Circumcision: Yes (08/08/2016 17:25:Deisy Arriola) Classes Attended: No (08/08/2016 17:25:Deisy Arriola) Tubal Ligation: No (08/08/2016 17:25:Deisy Arriola) Tubal Authorization Signed: N/A (08/08/2016 17:25:Deisy Arriola) Consent: N/A (08/08/2016 17:25:Deisy Arriola) Consent Signed: N/A (08/08/2016 17:25:Deisy Arriola) Pain Management Plans: Epidural (08/08/2016 17:25:Stefan Coats RN) Plans for Labor and Delivery: None (08/08/2016 17:25:Stefan Coats RN) Support Person: Gagan Weller (08/08/2016 17:25:Stefan Coats RN) Support Person Relationship: Significant Other (08/08/2016 17:25:Stefan Coats RN) Other Relationship: Mother (08/08/2016 17:25:Stefan Coats RN) Cultural/Spritual Practice: No (08/08/2016 17:25:Stefan Coats RN) Spir/Cult Dietary Needs: No (08/08/2016 17:25:Stefan Coats RN) LIVING SITUATION/DISCHARGE PLAN Living Arrangements: House (08/08/2016 17:25:Stefan Coats RN) Adequate Access to:: Electric; Heat; Refrigeration; Plumbing/Running water; Phone; Transportation (08/08/2016 17:25:Stefan Coats RN) WIC Program: Yes (08/08/2016 17:25:Stefan Coats RN) Discharge Painting Contractor Person: Gagan Harmon (08/08/2016 17:25:Stefan Coats RN) Person to Help after Discharge: Gagan Harmon (08/08/2016 17:25:Stefan Coats RN) Currently Using Commun Resources: Yes (08/08/2016 17:25:Nancy Hunter RN) Specify Current Resource Used: Medicaid (08/08/2016 17:25:Stefan Coats RN) Outside Agency/Estate Planner: No (08/08/2016 17:25:Nancy Hunter RN) Car Seat for Discharge: Yes (08/08/2016 17:25:Nancy Hunter RN) Adoption Requested: No (08/08/2016 17:25:Stefan Coats RN) Pt Contact w/infant Post : N/A (08/08/2016 17:25:Stefan Coats RN) LABS Blood Type: A Negative (08/08/2016 17:25:Stefan Coats RN) Antibody Screen: Negative (08/08/2016 17:25:Stefan Coats RN) Rho(G) this : Yes (08/08/2016 17:25:Nancy Hunter RN) Date Rho(G) Given: 09/22/16 (08/08/2016 17:25:Nancy Hunter RN) Hemoglobin: 9.1 L (12/14/2016 08:16:QS system process) Hematocrit: 27.8 L (12/14/2016 08:16:QS system process) MCV: 83 (12/14/2016 08:16:QS system process) Group Beta Strep: negative (08/08/2016 17:25:Nancy Hunter RN) Gonorrhea: Negative (08/08/2016 17:25:Nancy Hunter RN) Chlamydia: Negative (08/08/2016 17:25:Nancy Hunter RN) RPR/VDRL: Nonreactive (08/08/2016 17:25:Stefan Coats RN) HIV Exposure Test: Negative (08/08/2016 17:25:Stefan Coats RN) Hepatitis B: Negative (08/08/2016 17:25:Stefan Coats RN) Rubella: Immune (08/08/2016 17:25:Stefan Coats RN) Rubella Titer: 1.33 (08/08/2016 17:25:Stefan Coats RN) OB/PREVIOUS HISTORY Previous Procedures: None (08/08/2016 17:25:Stefan Coats RN) Current Procedures: Ultrasound (08/08/2016 17:25:Stefan Coats RN) History of Previous : No (08/08/2016 17:25:Stefan Coats RN) History of Gestational Diabetes: No (08/08/2016 17:25:Stefan Coats RN) History of PIH: No (08/08/2016 17:25:Stefan Coats RN) History of Incompetent Cervix: No (08/08/2016 17:25:Stefan Coats RN) History of Placenta Previa/Abrup: No (08/08/2016 17:25:Stefan Coats RN) History of Macrosomia: No (08/08/2016 17:25:Stefan Coats RN) History of IUGR: No (08/08/2016 17:25:Stefan Coats RN) History of Hemorrhage: No (08/08/2016 17:25:Stefan Coats RN) History of Loss/Stillborn: No (08/08/2016 17:25:Stefan Coats RN) History of : No (08/08/2016 17:25:Stefan Coats RN) History of D (Rh) Sensitization: No (08/08/2016 17:25:Stefan Coats RN) History Recurrent Loss/Stillborn: No (08/08/2016 17:25:Stefan Coats RN) History Depression/PP Depression: No (08/08/2016 17:25:Stefan Coats RN) History of Uterine Anomaly/CHEPE: No (08/08/2016 17:25:Stefan Coats RN) History of Infertility: No (08/08/2016 17:25:Stefan Coats RN) History of ART Treatment: No (08/08/2016 17:25:Stefan Coats RN) History of CHEPE: No (08/08/2016 17:25:Stefan Coats RN) Comments Obstetrical History: G1 current (08/08/2016 17:25:Stefan Coats RN) MEDICAL HISTORY Med Hx Diabetes: No (08/08/2016 17:25:Stefan Coats RN) Med Hx Hypertension: No (08/08/2016 17:25:Stefan Coats RN) Med Hx Heart Disease: No (08/08/2016 17:25:Stefan Coats RN) Med Hx Autoimmune Disorder: No (08/08/2016 17:25:Stefan Coats RN) Med Hx Kidney Disease/UTI: No (08/08/2016 17:25:Stefan Coats RN) Med Hx Neurologic/Epilepsy: No (08/08/2016 17:25:Stefan Coats RN) Med Hx Psychiatric Disorders: Yes (08/08/2016 17:25:Stefan Coats RN) Med Hx Hepatitis/Liver Disease: No (08/08/2016 17:25:Stefan Coats RN) Med Hx Varicosities/Phlebitis: No (08/08/2016 17:25:Stefan Coats RN) Med Hx Thyroid Dysfunction: No (08/08/2016 17:25:Stefan Coats RN) Med Hx Trauma/Violence: No (08/08/2016 17:25:Stefan Coats RN) Med Hx Blood Transfusion: No (08/08/2016 17:25:Stefan Coats RN) Med Hx Pulmonary (Asthma,TB): No (08/08/2016 17:25:Stefan Coats RN) Med Hx Breast: No (08/08/2016 17:25:Stefan Coats RN) Med Hx UNIT NURSE Surgery: No (08/08/2016 17:25:Stefan Coats RN) Med Hx Hospitalization/Surgery: Yes (08/08/2016 17:25:Stefan Coats RN) Med Hx Anesthetic Complications: No (08/08/2016 17:25:Stefan Coats RN) Med Hx Abnormal Pap Smear: No (08/08/2016 17:25:Stefan Coats RN) Other Medical Diseases: No (08/08/2016 17:25:Stefan Coats RN) Med Hx Significant Family Hx: No (08/08/2016 17:25:Stefan Cotas RN) Details of Med/Surg Hx: Severe GERD, Esoph Dysphagia, Hyperlipidemia, Anxiety, Acid Reflux Tonsillectomy (08/08/2016 17:25:Stefan Coats RN) INFECTIOUS HISTORY Inf Hx Gonorrhea: No (08/08/2016 17:25:Stefan Coats RN) Inf Hx Chlamydia: No (08/08/2016 17:25:Stefan Coats RN) Inf Hx Syphilis: No (08/08/2016 17:25:Stefan Coats RN) Inf Hx HIV/AIDS: No (08/08/2016 17:25:Stefan Coats RN) Inf Hx Human Papilloma Virus: No (08/08/2016 17:25:Stefan Coats RN) Inf Hx Pt/Partner Genital Herpes: No (08/08/2016 17:25:Stefan Coats RN) Inf Hx Tuberculosis/Exposure: No (08/08/2016 17:25:Stefan Coats RN) Inf Hx Hepatitis B,C: No (08/08/2016 17:25:Stefan Coats RN) Inf Hx Rash or Viral Illness: No (08/08/2016 17:25:Stefan Coats RN) GENETIC HISTORY Gen Hx Age >=35 at VIKAS: No (08/08/2016 17:25:Stefan Coats RN) Gen Hx Thalassemia: No (08/08/2016 17:25:Stefan Coats RN) Gen Hx Congenital Heart Defect: No (08/08/2016 17:25:Stefan Coats RN) Gen Hx Neural Tube Defect: No (08/08/2016 17:25:Stefan Coats RN) Gen Hx Down's Syndrome: No (08/08/2016 17:25:Stefan Coats RN) Gen Hx Manjit-Sachs: No (08/08/2016 17:25:Stefan Coats RN) Gen Hx Esteban: No (08/08/2016 17:25:Stefan Coats RN) Gen Hx Familial Dysautonomia: No (08/08/2016 17:25:Stefan Coats RN) Gen Hx Sickle Cell Disease/Trait: No (08/08/2016 17:25:Stefan Coats RN) Gen Hx Hemophilia/Blood Disorder: No (08/08/2016 17:25:Stefan Coats RN) Gen Hx Muscular Dystrophy: No (08/08/2016 17:25:Stefan Coats RN) Gen Hx Cystic Fibrosis: No (08/08/2016 17:25:Stefan Coats RN) Gen Hx Huntingtons Chorea: No (08/08/2016 17:25:Stefan Coats RN) Gen Hx Mental Retardation/Autism: No (08/08/2016 17:25:Stefan Coats RN) Gen Hx Tested for Fragile X: No (08/08/2016 17:25:Stefan Coats RN) Gen Hx Other Inher/Chromosomal: No (08/08/2016 17:25:Stefan Coats RN) Gen Hx Maternal Metabolic DO: No (08/08/2016 17:25:Stefan Coats RN) Gen Hx Pt Father or FOB Defect: No (08/08/2016 17:25:Stefan Coats RN) Gen Hx Other Genetic History: No (08/08/2016 17:25:Stefan Coats RN) Gen Hx Drugs/Meds since LMP: No (08/08/2016 17:25:Stefan Coats RN) Details of Genetic History: FOB is adopted, unknown medical hx (08/08/2016 17:25:Stefan Coats RN)
--- NOTE | 2016-12-15 06:05 | L&D General Admission ---
General Admit Datetime Report Generated by CPN: 12/15/2016 06:00 INFORMATION Patient Age: 26 (08/08/2016 17:09:QS system process) EDC: 12/17/2016 00:00 (08/08/2016 17:25:Skye Alejandro RN) : 1 (08/08/2016 17:25:Skye Alejandro RN) Para: 0 (11/21/2016 01:33:Deisy Arriola) Term: 0 (08/08/2016 17:25:Skye Alejandro RN) : 0 (08/08/2016 17:25:Skye Alejandro RN) Spontaneous Abortions: 0 (08/08/2016 17:25:Skye Alejandro RN) Induced Abortions: 0 (08/08/2016 17:25:Skye Alejandro RN) Livin (08/08/2016 17:25:Skye Alejandro RN) Cesareans: 0 (08/08/2016 17:25:Skye Alejandro RN) VBACs: 0 (08/08/2016 17:25:Skye Alejandro RN) Ectopic: 0 (08/08/2016 17:25:Skye Alejandro RN) Multiple Births: 0 (08/08/2016 17:25:Skye Alejandro RN) Baby, Number in Womb: 1 (11/21/2016 01:33:Deisy Arriola) CARE Primary Regulatory Agency Director[facility] (08/08/2016 17:25:Skye Alejandro RN) Month of 1st Visit: April (08/08/2016 17:25:Nancy Hunter RN) Adequate Care: Yes (08/08/2016 17:25:Skye Alejandro RN) Height (in): 64 (12/14/2016 10:56:QS system process) ALLERGIES Medication Allergy: Yes (08/08/2016 17:25:Skye Alejandro RN) Medication Allergies: ibuprofen/MO/VOMITING (09/08/2016) (09/08/2016 18:10:QS system process) Latex Allergy: No Latex Allergies (08/08/2016 17:25:Skye Alejandro RN) Food Allergies: None (08/08/2016 17:25:Skye Alejandro RN) Environmental Allergies: None (08/08/2016 17:25:Skye Alejandro RN) COMMUNICATION Primary Language: Croatian (08/08/2016 17:25:Skye Alejandro RN) Medical Tx Preferred Language: Croatian (08/08/2016 17:25:Skye Alejandro RN) Communication Barrier(s): None (08/08/2016 17:25:Stefan Coats RN) DEMOGRAPHICS Address: [address] [place] [address] (08/08/2016 17:09:QS system process) Zipcode: [address] (08/08/2016 17:09:QS system process) Home (08/08/2016 17:09:QS system process) SSN: [id number] (08/08/2016 17:09:QS system process) Next of Kin Name: CHRISTELLE WELLER (08/08/2016 17:09:QS system process) Next of Kin (09/08/2016 17:03:QS system process) Next of Kin Relationship: MO (08/08/2016 17:09:QS system process) Date of : 1990 (08/08/2016 17:09:QS system process) Marital Status: (08/08/2016 17:09:QS system process) Sex: Female (08/08/2016 17:09:QS system process) Occupation: None (08/08/2016 17:25:Stefan Coats RN) Race: (08/08/2016 17:09:QS system process) Ethnicity: Non- or (08/08/2016 17:09:QS system process) Synagogue: Christianity (08/08/2016 17:09:QS system process) Education: 14 (08/08/2016 17:25:Stefan Coats RN) FOB Involved: Yes (08/08/2016 17:25:Stefan Coats RN) Father of Baby Name: Gagan Delcid (08/08/2016 17:25:Stefan Coats RN) Person Auth to release pt PHI: Gagan LÓPEZ (08/08/2016 17:25:Stefan Coats RN) DRUG AND ALCOHOL USE Alcohol: No (08/08/2016 17:25:Stefan Coats RN) Cigarettes: Never Smoker. [id number] (08/08/2016 17:25:Stefan Coats RN) Marijuana: No (08/08/2016 17:25:Stefan Coats RN) Cocaine: No (08/08/2016 17:25:Stefan Coats RN) Other Illicit Drugs: No (08/08/2016 17:25:Stefan Coats RN) VACCINE HISTORY Influenza Vaccine: Yes (08/08/2016 17:25:Nancy Hunter RN) Influenza Date: 10/11/16 (08/08/2016 17:25:Nancy Hunter RN) Pneumococcal Vaccine: No (08/08/2016 17:25:Stefan Coats RN) Tetanus Vaccine: No (08/08/2016 17:25:Stefan Coats RN) Tdap Vaccine: Yes (08/08/2016 17:25:Stefan Coats RN) Tdap Date: 08/08/16 (08/08/2016 17:25:Stefan Coats RN) Hepatitis B Vaccine: Yes (08/08/2016 17:25:Stefan Coats RN) Manager Purchasing: [facility] (08/08/2016 17:25:Nancy Hunter RN) Feeding Preference: Breast (08/08/2016 17:25:Deisy Arriola) Benefit of Breast Feed Discussed: Yes (08/08/2016 17:25:Nancy Hunter RN) Circumcision: Yes (08/08/2016 17:25:Deisy Arriola) Classes Attended: No (08/08/2016 17:25:Deisy Arriola) Tubal Ligation: No (08/08/2016 17:25:Deisy Arriola) Tubal Authorization Signed: N/A (08/08/2016 17:25:Deisy Arriola) Consent: N/A (08/08/2016 17:25:Deisy Arriola) Consent Signed: N/A (08/08/2016 17:25:Deisy Arriola) Pain Management Plans: Epidural (08/08/2016 17:25:Stefan Coats RN) Plans for Labor and Delivery: None (08/08/2016 17:25:Stefan Coats RN) Support Person: Gagan Weller (08/08/2016 17:25:Stefan Coats RN) Support Person Relationship: Significant Other (08/08/2016 17:25:Stefan Coats RN) Other Relationship: Mother (08/08/2016 17:25:Stefan Coats RN) Cultural/Spritual Practice: No (08/08/2016 17:25:Stefan Coats RN) Spir/Cult Dietary Needs: No (08/08/2016 17:25:Stefan Coats RN) LIVING SITUATION/DISCHARGE PLAN Living Arrangements: House (08/08/2016 17:25:Stefan Coats RN) Adequate Access to:: Electric; Heat; Refrigeration; Plumbing/Running water; Phone; Transportation (08/08/2016 17:25:Stefan Coats RN) WIC Program: Yes (08/08/2016 17:25:Stefan Coats RN) Discharge Power Plant Operator Person: Gagan Harmon (08/08/2016 17:25:Stefan Coats RN) Person to Help after Discharge: Gagan Harmon (08/08/2016 17:25:Stefan Coats RN) Currently Using Commun Resources: Yes (08/08/2016 17:25:Nancy Hunter RN) Specify Current Resource Used: Medicaid (08/08/2016 17:25:Stefan Coats RN) Outside Agency/Theatre Professor: No (08/08/2016 17:25:Nancy Hunter RN) Car Seat for Discharge: Yes (08/08/2016 17:25:Nancy Hunter RN) Adoption Requested: No (08/08/2016 17:25:Stefan Coats RN) Pt Contact w/infant Post : N/A (08/08/2016 17:25:Stefan Coats RN) LABS Blood Type: A Negative (08/08/2016 17:25:Stefan Coats RN) Antibody Screen: Negative (08/08/2016 17:25:Stefan Coats RN) Rho(G) this : Yes (08/08/2016 17:25:Nancy Hunter RN) Date Rho(G) Given: 09/22/16 (08/08/2016 17:25:Nancy Hunter RN) Hemoglobin: 9.1 L (12/14/2016 08:16:QS system process) Hematocrit: 27.8 L (12/14/2016 08:16:QS system process) MCV: 83 (12/14/2016 08:16:QS system process) Group Beta Strep: negative (08/08/2016 17:25:Nancy Hunter RN) Gonorrhea: Negative (08/08/2016 17:25:Nancy Hunter RN) Chlamydia: Negative (08/08/2016 17:25:Nancy Hunter RN) RPR/VDRL: Nonreactive (08/08/2016 17:25:Stefan Coats RN) HIV Exposure Test: Negative (08/08/2016 17:25:Stefan Coats RN) Hepatitis B: Negative (08/08/2016 17:25:Stefan Coats RN) Rubella: Immune (08/08/2016 17:25:Stefan Coats RN) Rubella Titer: 1.33 (08/08/2016 17:25:Stefan Coats RN) OB/PREVIOUS HISTORY Previous Procedures: None (08/08/2016 17:25:Stefan Coats RN) Current Procedures: Ultrasound (08/08/2016 17:25:Stefan Coats RN) History of Previous : No (08/08/2016 17:25:Stefan Coats RN) History of Gestational Diabetes: No (08/08/2016 17:25:Stefan Coats RN) History of PIH: No (08/08/2016 17:25:Stefan Coats RN) History of Incompetent Cervix: No (08/08/2016 17:25:Stefan Coats RN) History of Placenta Previa/Abrup: No (08/08/2016 17:25:Stefan Coats RN) History of Macrosomia: No (08/08/2016 17:25:Stefan Coats RN) History of IUGR: No (08/08/2016 17:25:Stefan Coats RN) History of Hemorrhage: No (08/08/2016 17:25:Stefan Coats RN) History of Loss/Stillborn: No (08/08/2016 17:25:Stefan Coats RN) History of : No (08/08/2016 17:25:Stefan Coats RN) History of D (Rh) Sensitization: No (08/08/2016 17:25:Stefan Coats RN) History Recurrent Loss/Stillborn: No (08/08/2016 17:25:Stefan Coats RN) History Depression/PP Depression: No (08/08/2016 17:25:Stefan Coats RN) History of Uterine Anomaly/CHEPE: No (08/08/2016 17:25:Stefan Coats RN) History of Infertility: No (08/08/2016 17:25:Stefan Coats RN) History of ART Treatment: No (08/08/2016 17:25:Stefan Coats RN) History of CHEPE: No (08/08/2016 17:25:Stefan Coats RN) Comments Obstetrical History: G1 current (08/08/2016 17:25:Stefan Coats RN) MEDICAL HISTORY Med Hx Diabetes: No (08/08/2016 17:25:Stefan Coats RN) Med Hx Hypertension: No (08/08/2016 17:25:Stefan Coats RN) Med Hx Heart Disease: No (08/08/2016 17:25:Stefan oCats RN) Med Hx Autoimmune Disorder: No (08/08/2016 17:25:Stefan Coats RN) Med Hx Kidney Disease/UTI: No (08/08/2016 17:25:Stefan Coats RN) Med Hx Neurologic/Epilepsy: No (08/08/2016 17:25:Stefan Coats RN) Med Hx Psychiatric Disorders: Yes (08/08/2016 17:25:Stefan Coats RN) Med Hx Hepatitis/Liver Disease: No (08/08/2016 17:25:Stefan Coats RN) Med Hx Varicosities/Phlebitis: No (08/08/2016 17:25:Stefan Coats RN) Med Hx Thyroid Dysfunction: No (08/08/2016 17:25:Stefan Coats RN) Med Hx Trauma/Violence: No (08/08/2016 17:25:Stefan Coats RN) Med Hx Blood Transfusion: No (08/08/2016 17:25:Stefan Coats RN) Med Hx Pulmonary (Asthma,TB): No (08/08/2016 17:25:Stefan Coats RN) Med Hx Breast: No (08/08/2016 17:25:Stefan Coats RN) Med Hx FRETTED INSTRUMENTS INSPECTOR Surgery: No (08/08/2016 17:25:Stefan Coats RN) Med Hx Hospitalization/Surgery: Yes (08/08/2016 17:25:Stefan Coats RN) Med Hx Anesthetic Complications: No (08/08/2016 17:25:Stefan Coats RN) Med Hx Abnormal Pap Smear: No (08/08/2016 17:25:Stefan Coats RN) Other Medical Diseases: No (08/08/2016 17:25:Stefan Coats RN) Med Hx Significant Family Hx: No (08/08/2016 17:25:Stefan Coats RN) Details of Med/Surg Hx: Severe GERD, Esoph Dysphagia, Hyperlipidemia, Anxiety, Acid Reflux Tonsillectomy (08/08/2016 17:25:Stefan Coats RN) INFECTIOUS HISTORY Inf Hx Gonorrhea: No (08/08/2016 17:25:Stefan Coats RN) Inf Hx Chlamydia: No (08/08/2016 17:25:Stefan Coats RN) Inf Hx Syphilis: No (08/08/2016 17:25:Stefan Coats RN) Inf Hx HIV/AIDS: No (08/08/2016 17:25:Stefan Coats RN) Inf Hx Human Papilloma Virus: No (08/08/2016 17:25:Stefan Coats RN) Inf Hx Pt/Partner Genital Herpes: No (08/08/2016 17:25:Stefan Coats RN) Inf Hx Tuberculosis/Exposure: No (08/08/2016 17:25:Stefan Coats RN) Inf Hx Hepatitis B,C: No (08/08/2016 17:25:Stefan Coats RN) Inf Hx Rash or Viral Illness: No (08/08/2016 17:25:Stefan Coats RN) GENETIC HISTORY Gen Hx Age >=35 at VIKAS: No (08/08/2016 17:25:Stefan Coats RN) Gen Hx Thalassemia: No (08/08/2016 17:25:Stefan Coats RN) Gen Hx Congenital Heart Defect: No (08/08/2016 17:25:Stefan Coats RN) Gen Hx Neural Tube Defect: No (08/08/2016 17:25:Stefan Coats RN) Gen Hx Down's Syndrome: No (08/08/2016 17:25:Stefan Coats RN) Gen Hx Manjit-Sachs: No (08/08/2016 17:25:Stefan Coats RN) Gen Hx Esteban: No (08/08/2016 17:25:Stefan Coats RN) Gen Hx Familial Dysautonomia: No (08/08/2016 17:25:Stefan Coats RN) Gen Hx Sickle Cell Disease/Trait: No (08/08/2016 17:25:Stefan Coats RN) Gen Hx Hemophilia/Blood Disorder: No (08/08/2016 17:25:Stefan Coats RN) Gen Hx Muscular Dystrophy: No (08/08/2016 17:25:Stefan Coats RN) Gen Hx Cystic Fibrosis: No (08/08/2016 17:25:Stefan Coats RN) Gen Hx Huntingtons Chorea: No (08/08/2016 17:25:Stefan Coats RN) Gen Hx Mental Retardation/Autism: No (08/08/2016 17:25:Stefan Coats RN) Gen Hx Tested for Fragile X: No (08/08/2016 17:25:Stefan Coats RN) Gen Hx Other Inher/Chromosomal: No (08/08/2016 17:25:Stefan Coats RN) Gen Hx Maternal Metabolic DO: No (08/08/2016 17:25:Stefan Coats RN) Gen Hx Pt Father or FOB Defect: No (08/08/2016 17:25:Stefan Coats RN) Gen Hx Other Genetic History: No (08/08/2016 17:25:Stefan Coats RN) Gen Hx Drugs/Meds since LMP: No (08/08/2016 17:25:Stefan Coats RN) Details of Genetic History: FOB is adopted, unknown medical hx (08/08/2016 17:25:Stefan Coats RN)
--- NOTE | 2016-12-15 06:05 | L&D Current Admission ---
Current Admit Datetime Report Generated by CPN: 12/15/2016 06:00 ADMISSION INFORMATION Current Admit Date/Time: 12/13/2016 07:15 (12/13/2016 08:30:Jacinta Carbone RN) Reason for Admission: Rupture of Membranes (12/13/2016 08:30:Jacinta Carbone RN) Chief Complaint: at 39.3 EDC 12/17/16 with complaints of leaking fluid since 0500 this morning. Pt unsure if ctx. +FM, no bleeding. (12/13/2016 06:17:Nancy Hunter RN) EGA per Dates: 39.3 (12/13/2016 08:30:QS system process) Method of Arrival: Wheelchair (12/13/2016 08:30:Jacinta Carbone RN) Admitted From: Home (12/13/2016 08:30:Jacinta Carbone RN) Reason for Induction: Not Applicable (12/13/2016 08:30:Jacinta Carbone RN) Records Available: Yes (12/13/2016 08:30:Jacinta Carbone RN) General Admission Information: Reviewed (12/13/2016 08:30:Jacinta Carbone RN) BELONGINGS/ADVANCED DIRECTIVES Other Belongings: see signed belongings consent (12/13/2016 08:30:Jacinta Carbone RN) Disposition of Belongings: Kept with Patient (12/13/2016 08:30:Jacinta Carbone RN) Advance Direct for Healthcare: No, and Wants No Information (12/13/2016 08:30:Jacinta Carbone RN) Durable Power of Cut Off Saw Tender Metal: No (12/13/2016 08:30:Jacinta Carbone RN) Living Will: No (12/13/2016 08:30:Jacinta Carbone RN) Organ Donor: No (12/13/2016 08:30:Jacinta Carbone RN) Pt Rights Information Given: Yes (12/13/2016 08:30:Jacinta Carbone RN) Pt Understands Pt Rights: Yes (12/13/2016 08:30:Jacinta Carbone RN) DOMESTIC VIOLANCE SCREENING Dom Viol Threatened/Hurt: No (12/13/2016 08:30:Jacinta Carbone RN) Hx of Abuse/Neglect past 2yrs: No (12/13/2016 08:30:Jacinta Carbone RN) Feel Unsafe Going Home: No (12/13/2016 08:30:Jacinta Carbone RN) Addt'l Observ Indicating Abuse: No (12/13/2016 08:30:Jacinta Carbone RN) Reason Unable to Complete Screen: N/A, Screen Completed (12/13/2016 08:30:Jacinta Carbone RN) Considered Personal Harm/Suicide: No (12/13/2016 08:30:Jacinta Carbone RN) NUTRITIONAL/FUNCTIONAL SCREENING Problem with Appetite >5 Days: No (12/13/2016 08:30:Jacinta Carbone RN) Chew/Swallow Difficulties: No (12/13/2016 08:30:Jacinta Carbone RN) Inappropriate Wt Gain/Loss: No (12/13/2016 08:30:Jacinta Carbone RN) Presence Skin Breakdown/Ulcer: No (12/13/2016 08:30:Jacinta Carbone RN) Special Diet: No (12/13/2016 08:30:Jacinta Carbone RN) Pt Requests Salesperson Florist Supplies Visit: No (12/13/2016 08:30:Jacinta Carbone RN) Hx of Any of the Following?: N/A (12/13/2016 08:30:Jacinta Carbone RN) New Diagnosis of: N/A (12/13/2016 08:30:Jacinta Carbone RN) Requires Assist w/Ambulation: No (12/13/2016 08:30:Jacinta Carbone RN) Uses Assist Device to Ambulate: No (12/13/2016 08:30:Jacinta Carbone RN) Pt Requires Help w/ADL's: No (12/13/2016 08:30:Jacinta Carbone RN)
[2016-12-15 08:58] VITALS: BP 115/68
[2016-12-15] MEDS: FERROUS SULFATE 325 MG TABLET PO SCH (10:15)
[2016-12-15] MEDS: DOCUSATE SODIUM 100 MG CAPSULE PO SCH (10:15)
[2016-12-15] MEDS: SENNOSIDES/DOCUSATE 8.6-50 MG 1 EACH TABLET PO SCH (10:15)
[2016-12-15] MEDS: PRENATAL VITAMIN W-O CA NO5/FE FUMARATE/FA CAPSULE PO SCH (10:15)
--- NOTE | 2016-12-15 10:37 | PDOC DISCHARGE SUMMARY ---
Final Diagnosis Discharge Date: 12/15/16 - Final Diagnosis (1) Vaginal delivery Is this a current diagnosis for this admission?: Yes Discharge Data - Discharge Medication Home Medications: Esomeprazole Magnesium [Nexium 24Hr] 40 mg PO BID 08/08/16 Pediatric Multivit Comb No.42 [Flintstones] 2 tab PO DAILY 08/08/16 [place]-3/Dha/Epa/Fish Oil [Fish Oil 1,600 mg/5 ml Liquid] 1 tsp PO DAILY Docusate Sodium [Colace 100 mg Capsule] 100 mg PO BID #60 capsule 12/15/16 Reason(s) for Admission: Onset of Labor Procedures: NST, Ultrasound Intrapartum Procedure(s): Spontaneous Vaginal Delivery Complication(s): Laceration-Vaginal, Laceration-Labial Laceration-Degree: 2nd - Data Baby 1 Male at 1 minute: 9 at 5 minutes: 9 Weight: 3650 kg Home with Mother: Yes Complications: No - Diagnosis Test Laboratory: Temp Pulse Resp BP Pulse Ox 97.8 F 102 H 18 115/68 100 12/15/16 08:08 12/15/16 08:08 12/15/16 08:07 12/15/16 08:08 12/15/16 08:08 12/13/16 12/13/16 12/14/16 06:10 07:10 08:16 RBC 4.14 3.36 L Hgb 11.5 L 9.1 L D Hct 34.5 L 27.8 L Urine Opiates Screen NEGATIVE - Discharge information/Instructions Discharge Activity: Activity As Tolerated, Balance Activity w/Rest, No Lifting Over 10 Pounds, No Lifting/Push/Pulling, Pelvic Rest, No tub bath Discharge Diet: As Tolerated, Regular Disposition: HOME, SELF-CARE Follow up with: [facility] in: 4, Weeks Physical Exam (OB) Vital Signs: Temp Pulse Resp BP Pulse Ox 97.8 F 102 H 18 115/68 100 12/15/16 08:08 12/15/16 08:08 12/15/16 08:07 12/15/16 08:08 12/15/16 08:08 Intake & Output 12/14/16 12/15/16 12/16/16 06:59 06:59 06:59 Intake Total 500 Balance 500 - General General Appearance: Appears well, Anxious In distress: None - Episiotomy/Laceration Site Condition: Well Approximated, Ecchymosis, Edematous - Lochia Lochia Amount: Small 10-25 ml Lochia Color: Rubra/Red - Abdomen Description: Soft Hernia Present: No Flatus Presence: Present Stool: No Fundal Description: Firm, Midline Fundal Height: u/3 - u/4 - Respiratory Respiratory Status: No respiratory distress - Genitourinary Female External exam: Bruising - left labia - Extremities Upper extremity: Normal inspection Lower extremities: Normal inspection - Neurological Orientation: AAOx4 - Psychological Associated symptoms: Normal affect, Normal mood, Tearful - reports increased anxiety since delivery and unable to rest a lot last night. Baby not latching well from left breast. attempting soft diet today, has been taking liquid tylenol and iron at home which will continue. Had long discussion regarding normal changes in the period and depression as well as s/ s to seek immediate help for. Pt. lives with and parents, will have help at home. Everyone present during visit, asked questions and verbalized understanding.
== END 2016-12-15 12:04 | disposition home or self-care (01) | DRG 775 ==
LOC: LC 05:57 → LR 07:03 → 2S 18:38
PROVIDERS: ADMIT Obstetrics & Gynecology; ATTEND Obstetrics & Gynecology
PROC: 10E0XZZ Delivery of Products of Conception, External Approach (ICD-10-PCS; principal; 2016-12-13)
PROC: 0KQM0ZZ Repair Perineum Muscle, Open Approach (ICD-10-PCS; 2016-12-13)
PROC: 10907ZC Drainage of Amniotic Fluid, Therapeutic from Products of Conception, Via Natural or Artificial Opening (ICD-10-PCS; 2016-12-13)
PROC: 4A1HXCZ Monitoring of Products of Conception, Cardiac Rate, External Approach (ICD-10-PCS; 2016-12-13)
DX: O99.62 Diseases of the digestive system complicating childbirth (principal); K21.9 Gastro-esophageal reflux disease without esophagitis; O70.1 Second degree perineal laceration during delivery; O99.344 Other mental disorders complicating childbirth; F41.9 Anxiety disorder, unspecified; Z88.6 Allergy status to analgesic agent; Z3A.39 39 weeks gestation of pregnancy; Z37.0 Single live birth
CPT/HCPCS: 36415; 80307; 81005; 84112; 85025; 85027; 86592; 86850; 86870; 86900; 86901; 88307; 94760; J2590; J3490

== ENCOUNTER → 2017-11-08 | Outpatient (CLI) | payer MEDICAID ==
--- NOTE | 2017-11-08 13:03 | RADIOLOGY REPORT (SQ) ---
EXAM DESCRIPTION: BARIUM SWALLOW ESOPHAGUS COMPLETED DATE/TIME: 11/08/2017 9:53 am REASON FOR STUDY: DYSPHAGIA R13.10 DYSPHAGIA, UNSPECIFIED COMPARISON: None. TECHNIQUE: Under fluoroscopic guidance, patient ingested effervescent granules followed by thick and thin barium. Fluoroscopic spot images and routine radiographic images acquired and stored on PACS. 12 MM BARIUM TABLET GIVEN: Patient was unable to swallow the 12 mm barium tablet LIMITATIONS: None. FLUOROSCOPY TIME: FLUORO TIME: 1 minutes 32 seconds 4 series of digital images saved to PACS. FINDINGS: NEUROMUSCULAR COORDINATION OF SWALLOW: Normal. No aspiration. ESOPHAGEAL MOTILITY: Normal peristalsis. No esophageal spasm. ESOPHAGEAL MUCOSA: Normal mucosa without masses or ulceration. GASTRO-ESOPHAGEAL JUNCTION: No hiatal hernia or reflux. NON-GI TRACT STRUCTURES: No significant finding. OTHER: No other significant finding. IMPRESSION: NORMAL DOUBLE CONTRAST BARIUM SWALLOW. COMMENT: Quality ID [id number]: Final reports for procedures using fluoroscopy that document radiation exp osure indices, or exposure time and number of fluorographic images (if radiation exposure indices are not available) TECHNICAL DOCUMENTATION: JOB ID: [id number] [employer]- All Rights Reserved
== END ==
LOC: RAD 09:37
PROVIDERS: ATTEND Internal Medicine Gastroenterology
DX: R13.10 Dysphagia, unspecified (principal)
CPT/HCPCS: 74220